=== PATIENT | female | born 1985 | race Caucasian/White ===

== ENCOUNTER 2019-03-04 09:23 | Inpatient (IN) | payer BC ==
[~2019-03-04] VITALS: Ht 154.9 cm; Wt 69.0 kg
--- OUTSIDE RECORDS SUMMARY | ~2019-03-04 | XMS | Encounter Summary ---
Demographics + + + | Address | [address] | | | [place] [address] | + + + | Home Phone | | + + + | Preferred Language | Unknown | + + + | Marital Status | | + + + | Catholic Affiliation | CHR | + + + | Race | White | + + + | Ethnic Group | Unknown | + + + Author + + + | Author | [facility] | + + + | Organization | [facility] | + + + | Address | Unknown | + + + | Phone | Unavailable | + + + Care Team Providers + +------+ + | Care Sales Audit Clerk Name | Role | Phone | + +------+ + PCP | Unavailable | + +------+ + Encounter Details +--------+ + + + + | Date | Type | Department | Care Team | Description | +--------+ + + + + | 07/02/ | Results | [facility] | Breanna Costa, | | | 2009 | Only | Medicine [address] | [place] [address] | | | | | [address] [place], | [place], [place] | | | | | [place] [address] | [address] | | | | | [phone] | [phone] | | | | | | | | +--------+ + + + + Social History + +-------+ +--------+------+ | Tobacco Use | Types | Packs/Day | Years | Date | | | | | Used | | + +-------+ +--------+------+ | Never Assessed | | | | | + +-------+ +--------+------+ + + + | Sex Assigned at | Date Recorded | | | | + + + | Not on file | | + + + + + + + | Job Start Date | Occupation | Industry | + + + + | Not on file | Not on file | Not on file | + + + + + + + + | Travel History | Travel Start | Travel End | + + + + + + | No recent travel history available. | + + documented as of this encounter Plan of Treatment Not on filedocumented as of this encounter Procedures + +--------+ + + + | Procedure Name | Priori | Date/Time | Associated Diagnosis | Comments | | | ty | | | | + +--------+ + + + | TSH | Routin | 07/02/2009 | | Results for this | | | e | 11:20 AM | | procedure are in the | | | | PDT | | results section. | + +--------+ + + + documented in this encounter Results TSH (07/02/2009 11:20 AM PDT) + +-------+ + + + | Component | Value | Ref Range | Performed | Pathologist | | | | | At | Signature | + +-------+ + + + | TSH | 0.64 | 0.34 - 5.6 | [facility] | | | | | UIU/ML | A MEDICAL | | | | | | CENTER | | + +-------+ + + + + + | Specimen | + + | | + + + + + + + | Performing | Address | City/State/Zipcode | Phone Number | | Organization | | | | + + + + + | [facility] | | | | | LABORATORY | | | | + + + + + | [facility] | And | [place] [address] | | | MEDICAL CENTER | Streets | | | + + + + + documented in this encounter Visit Diagnoses Not on filedocumented in this encounter"
--- OUTSIDE RECORDS SUMMARY | ~2019-03-04 | XMS | Encounter Summary ---
Demographics + + + | Address | [address] | | | [place] [address] | + + + | Home Phone | | + + + | Preferred Language | Unknown | + + + | Marital Status | | + + + | Caodaism Affiliation | CHR | + + + | Race | White | + + + | Ethnic Group | Unknown | + + + Author + + + | Author | [facility] | + + + | Organization | [facility] | + + + | Address | Unknown | + + + | Phone | Unavailable | + + + Care Team Providers + +------+ + | Care Driver Manager Name | Role | Phone | + +------+ + PCP | Unavailable | + +------+ + Encounter Details +--------+ + + + + | Date | Type | Department | Care Team | Description | +--------+ + + + + | 12/18/ | Results | [facility] | Yevgeniy Pierre | | | 2009 | Only | Department | MD Donovan | | +--------+ + + + + [...] | + +--------+ + + + | CBC (HEMOGRAM) ONLY | Routin | 12/18/2008 | | Results for this | | | e | 8:26 AM | | procedure are in the | | | | PDT | | results section. | + +--------+ + + + | ANTIBODY SCREEN | Routin | 12/18/2008 | | Results for this | | | e | 8:26 AM | | procedure are in the | | | | PDT | | results section. | + +--------+ + + + | GLUCOSE TOLERANCE | Routin | 12/18/2008 | | Results for this | | TEST, 1 HOUR | e | 8:26 AM | | procedure are in the | | | | PDT | | results section. | + +--------+ + + + documented in this encounter Results GLUCOSE TOLERANCE TEST, 1 HOUR (12/18/2008 8:26 AM PDT) + +-------+ + + + | Component | Value | Ref Range | Performed | Pathologist | | | | | At | Signature | + +-------+ + + + | 1 HOUR | 117 | <140 MG/DL | [facility] | | | GLUCOSE - | | | A MEDICAL | | | 2GT | | | CENTER | | + [...] | + + + + + | [facility] [address] | [place] [address] | | | MEDICAL CENTER | Streets | | | + + + + + CBC (HEMOGRAM) ONLY (12/18/2008 8:26 AM PDT) + + + + + + | Component | Value | Ref Range | Performed | Pathologist | | | | | At | Signature | + + + + + + | WHITE BLOOD | 10.5 | 4.3 - 11.0 X10 | [facility] | | | CELL COUNT | | 3/ul | A MEDICAL | | | | | | CENTER | | + + + + + + | HEMOGLOBIN | 12.2 | 12.0 - 16.0 | [facility] | | | | | g/dL | A MEDICAL | | | | | | CENTER | | + + + + + + | RED BLOOD | 3.96 (L) | 4.2 - 5.4 X10 | [facility] | | | CELL COUNT | | 6/uL | A MEDICAL | | | | | | CENTER | | + + + + + + | HEMATOCRIT | 34.8 (L) | 38.0 - 47.0 % | [facility] | | | | | | A MEDICAL | | | | | | CENTER | | + + + + + + | MCV | 88.1 | 82 - 100 fl | [facility] | | | | | | A MEDICAL | | | | | | CENTER | | + + + + + + | MCH | 30.8 | 28.0 - 32.0 pg | [facility] | | | | | | A MEDICAL | | | | | | CENTER | | + + + + + + | MCHC | 34.9 | 32 - 36 g/dL | [facility] | | | | | | A MEDICAL | | | | | | CENTER | | + + + + + + | RDW | 12.4 | 12 - 15 fL | [facility] | | | | | | A MEDICAL | | | | | | CENTER | | + + + + + + | PLATELET | 265 | 150 - 450 X10 3 | [facility] | | | COUNT | | | A MEDICAL | | | | | | CENTER | | + + + + + + | MPV | 8.8 (L) | 9.0 - 12.0 fL | [facility] | | | | | | A MEDICAL | | | | | | CENTER | | + + + + + + + + | Specimen | + + | | + + + + + + + | Performing | Address | City/State/Zipcode | Phone Number | | Organization | | | | + + + + + | [facility] | | | | | LABORATORY | | | | + + + + + | [facility] | [address] | [place] [address] | | | MEDICAL CENTER | Streets | | | + + + + + ANTIBODY SCREEN (12/18/2008 8:26 AM PDT) + + + + + + | Component | Value | Ref Range | Performed | Pathologist | | | | | At | Signature | + + + + + + | ANTIBODY | NEGATIVE | NEGATIVE | [facility] | | | SCREEN | | | A MEDICAL | | | | | | CENTER | | + + + + + + + + | Specimen | + + | | + + + + + + + | Performing | Address | City/State/Zipcode | Phone Number | | Organization | | | | + + + + + | [facility] | | | | | LABORATORY | | | | + + + + + | [facility] | [address] | [place] [address] | | | MEDICAL CENTER | Streets | | | + + + + + documented in this encounter Visit Diagnoses Not on filedocumented in this encounter"
--- OUTSIDE RECORDS SUMMARY | ~2019-03-04 | XMS | Encounter Summary ---
Demographics + + + | Address | [address] | | | [place] [address] | + + + | Home Phone | | + + + | Preferred Language | Unknown | + + + | Marital Status | | + + + | Sikhism Affiliation | CHR | + + + | Race | White | + + + | Ethnic Group | Unknown | + + + Author + + + | Author | [facility] | + + + | Organization | [facility] | + + + | Address | Unknown | + + + | Phone | Unavailable | + + + Care Team Providers + +------+ + | Care Scrum Project Manager Name | Role | Phone | + +------+ + PCP | Unavailable | + +------+ + Encounter Details +--------+ + + + + | Date | Type | Department | Care Team | Description | +--------+ + + + + | 03/20/ | Results | [facility] [address] | Other, Faculty | | | 2009 | Only | [address] | [phone] | | | | | [place] | | | | | | [address] | | | +--------+ + + + [...] + + + + | WBC, | [facility] [employer] | X10 3/uL | [facility] | | [...] + + + | BANDS % | [employer] | 0 - 7 % | [facility] [...] + + + + | EOSINOPHIL% | [facility] [employer] | 0 - 5 % | [facility] | | | , MANUAL | | | A MEDICAL | | | | | | CENTER | | + + + + + + | BASOPHIL%, | [facility] | 0 - 1 % | [facility] | | | MANUAL | | | A MEDICAL | | | | | | CENTER | | + + + + + + | REACTIVE | [facility] | 0.0 - 4.0 % | [facility] [...] + + + + | METAMYELOCY | [facility] [employer] | 0 - 0 % | [facility] | | | TISH % | | | A MEDICAL | | | | | | CENTER | | + + + + + + | MYELOCYTES | [employer] | 0 - 0 % | [facility] | | | % | | | A MEDICAL | | | | | | CENTER | | + + + + + + | PROMYELOCYT | [employer] | 0 - 0 % | [facility] | | | ES % | | | A MEDICAL | | | | | | CENTER | | + + + + + + | BLASTS | [employer] | 0 - 0 % | [facility] [...] + + + + | NUCLEATED | [employer] | | [facility] | | | RBCS | | | A MEDICAL | | | | | | CENTER | | + + + + + + | GIANT PLT | [facility] | | [facility] | | | | [...] | + + + + + | [facility] | [address] | [place] [address] | | | MEDICAL CENTER | Streets [...] (H) | 4.3 - 11.0 X10 | [facility] | | | CELL COUNT | | 3/ul | A MEDICAL | | | | | | CENTER | | + + + + + + | WBC, | [employer] | X10 3/uL | [facility] | | [...] + + + | BANDS % | [employer] | 0 - 7 % | [facility] [...] + + + + | EOSINOPHIL% | [facility] | 0 - 5 % | [facility] | | | , MANUAL | | | A MEDICAL | | | | | | CENTER | | + + + + + + | BASOPHIL%, | [facility] | 0 - 1 % | [facility] | | | MANUAL | | | A MEDICAL | | | | | | CENTER | | + + + + + + | REACTIVE | [employer] | 0.0 - 4.0 % | [facility] [...] + + + + | METAMYELOCY | [facility] | 0 - 0 % | [facility] | | | TISH % | | | A MEDICAL | | | | | | CENTER | | + + + + + + | MYELOCYTES | [facility] | 0 - 0 % | [facility] | | | % | | | A MEDICAL | | | | | | CENTER | | + + + + + + | PROMYELOCYT | [facility] [employer] | 0 - 0 % | [facility] | | | ES % | | | A MEDICAL | | | | | | CENTER | | + + + + + + | BLASTS | [employer] | 0 - 0 % | [facility] [...] + + + + | NUCLEATED | [employer] | | [facility] | | | RBCS | | | A MEDICAL | | | | | | CENTER | | + + + + + + | GIANT PLT | [employer] | | [facility] | | | | [...] | + + + + + | [facility] | And | [place] [address] | | | MEDICAL CENTER | Streets | | | + + + + + documented in this encounter Visit Diagnoses Not on filedocumented in this encounter"
--- OUTSIDE RECORDS SUMMARY | ~2019-03-04 | XMS | Encounter Summary ---
Demographics + + + | Address | [address] | | | [place] [address] | + + + | Home Phone | | + + + | Preferred Language | Unknown | + + + | Marital Status | | + + + | Christian Affiliation | CHR | + + + | Race | White | + + + | Ethnic Group | Unknown | + + + Author + + + | Author | [facility] | + + + | Organization | [facility] | + + + | Address | Unknown | + + + | Phone | Unavailable | + + + Care Team Providers + +------+ + | Care Corporate Director Talent Assessment Name | Role | Phone | + +------+ + PCP | Unavailable | + +------+ + Encounter Details +--------+ + + + + | Date | Type | Department | Care Team | Description | +--------+ + + + + | 03/09/ | Results | [facility] [address] | Other, Faculty | | | 2009 | Only | [address] | [phone] | | | | | [place] | | | | | | [address] | | | +--------+ + + + [...] | + +--------+ + + + | ZULEIKA W/DIFF, REFLEX | Routin | 03/09/2009 | | Results for this | | | e | 10:49 PM | | procedure are in the | | | | PST | | results section. | + +--------+ + + + | UREA NITROGEN, | Routin | 03/09/2009 | | Results for this | | PLASMA | e | 10:49 PM | | procedure are in the | | | | PST | | results section. | + +--------+ + + + documented in this encounter Results ZULEIKA W/DIFF, REFLEX (03/09/2009 10:49 PM PST) + + + + + + | Component | Value | Ref Range | Performed | Pathologist | | | | | At | Signature | + + + + + + | WHITE BLOOD | 14.2 (H) | 4.3 - 11.0 X10 | [facility] | | | CELL COUNT | | 3/ul | A MEDICAL | | | | | | CENTER | | + + + + + + | HEMOGLOBIN | 11.5 (L) | 12.0 - 16.0 | [facility] | | | | | g/dL | A MEDICAL | | | | | | CENTER | | + + + + + + | RED BLOOD | 3.83 (L) | 4.2 - 5.4 X10 | [facility] | | | CELL COUNT | | 6/uL | A MEDICAL | | | | | | CENTER | | + + + + + + | HEMATOCRIT | 32.2 (L) | 38.0 - 47.0 % | [facility] | | | | | | A MEDICAL | | | | | | CENTER | | + + + + + + | MCV | 84.0 | 82 - 100 fl | [facility] | | | | | | A MEDICAL | | | | | | CENTER | | + + + + + + | MCH | 30.0 | 28.0 - 32.0 pg | [facility] | | | | | | A MEDICAL | | | | | | CENTER | | + + + + + + | MCHC | 35.7 | 32 - 36 g/dL | [facility] | | | | | | A MEDICAL | | | | | | CENTER | | + + + + + + | RDW | 11.9 (L) | 12 - 15 fL | [facility] | | | | | | A MEDICAL | | | | | | CENTER | | + + + + + + | PLATELET | 276 | 150 - 450 X10 3 | [facility] | | | COUNT | | | A MEDICAL | | | | | | CENTER | | + + + + + + | MPV | 9.4 | 9.0 - 12.0 fL | [facility] | | | | | | A MEDICAL | | | | | | CENTER | | + + + + + + | NEUTROPHIL | 86.6 (H) | 40 - 80 % | [facility] | | | % | | | A MEDICAL | | | | | | CENTER | | + + + + + + | LYMPHOCYTE | 9.4 (L) | 20 - 50 % | [facility] | | | % | | | A MEDICAL | | | | | | CENTER | | + + + + + + | EOS % | 1.0 | 0 - 5 % | [facility] | | | | | | A MEDICAL | | | | | | CENTER | | + + + + + + | BASO % | 1.0 | 0 - 1 % | [facility] | | | | | | A MEDICAL | | | | | | CENTER | | + + + + + + | MONOCYTE % | 2.0 | 2 - 10 % | [facility] | | | | | | A MEDICAL | | | | | | CENTER | | + + + + + + | BANDS % | MANAGER OF INVESTIGATIONS | 0 - 7 % | [facility] | | | | | | A MEDICAL | | | | | | CENTER | | + + + + + + | CBC | NPYYY | | [facility] | | | COMMENTS | | | A MEDICAL | | | | | | CENTER | | + + + + + + | HELMET | NO HELMET CELLS SEEN | | [facility] | | | CELLS | | | A MEDICAL | | [...] | + + + + + | [facility] | [address] | [place] [address] | | | MEDICAL CENTER | Streets | | | + + + + + UREA NITROGEN, PLASMA (03/09/2009 10:49 PM PST) + + + + + + | Component | Value | Ref Range | Performed | Pathologist | | | | | At | Signature | + + + + + + | BUN, PLASMA | 8 | 8 - 30 MG/DL | [facility] | | | (LAB) | | | A MEDICAL | | | | | | CENTER | | + + + + + + | CREATININE | 0.54 (L) | 0.6 - 1.1 MG/DL | [facility] | | | PLASMA | | | A MEDICAL | | | (LAB) | | | CENTER | | + + + + + + | URIC ACID, | 3.9 | 3.4 - 8.5 MG/DL | [facility] | | | PLASMA | | | A MEDICAL | | | (LAB) | | | CENTER | | + + + + + + | AST(SGOT) | 27 | 10 - 41 U/L | [facility] | | | | | [...] | + + + + + | [facility] | | [place] [address] | | | [facility] | [facility] | | | + + + + + documented in this encounter Visit Diagnoses Not on filedocumented in this encounter"
--- OUTSIDE RECORDS SUMMARY | ~2019-03-04 | XMS | Encounter Summary ---
Demographics + + + | Address | [address] | | | [place] [address] | + + + | Home Phone | | + + + | Preferred Language | Unknown | + + + | Marital Status | | + + + | Sikh Affiliation | CHR | + + + | Race | White | + + + | Ethnic Group | Unknown | + + + Author + + + | Author | [facility] | + + + | Organization | [facility] | + + + | Address | Unknown | + + + | Phone | Unavailable | + + + Care Team Providers + +------+ + | Care Reducing Salon Attendant Name | Role | Phone | + +------+ + PCP | Unavailable | + +------+ + Encounter Details +--------+ + + + + | Date | Type | Department | Care Team | Description | +--------+ + + + + | 05/03/ | Results | [facility] | Other, Faculty | | | 2009 | Only | [address] | [phone] | | | | | [place] | | | | | | [address] | | | +--------+ + + + [...] | + +--------+ + + + | GC/CHLAMYDIA PROBE, | Routin | 05/03/2009 | | Results for this | | DNA | e | 12:00 AM | | procedure are in the | | | | PDT | | results section. | + +--------+ + + + documented in this encounter Results GC/CHLAMYDIA PROBE, DNA (05/03/2009 12:00 AM PDT) + + + + + + | Component | Value | Ref Range | Performed | Pathologist | | | | | At | Signature | + + + + + + | CHLAMYDIA | NOT DETECTEDComment: | | [facility] | | | PROBE | | | [facility] | | | | | | -[place] | | | | REFERENCE: | | | | | | | | | | | | | | | | | | NOT DETECTED | | | | + + + + + + | GONOCOCCUS | NOT DETECTEDComment: | | [facility] | | | PROBE | | | DIAGNOST[facility] | | | | | | -[place] | | | | REFERENCE: | | | | | | | | | | | | | | | | | | NOT DETECTED | | | | + + + + + + + + | Specimen | + + | | + + + + + + + | Performing | Address | City/State/Zipcode | Phone Number | | Organization | | | | + + + + + | [facility] | [address] | [place] [address] | [phone] | | [facility] | | | | + + + + + | [facility] | | | | | [facility] | | | | + + + + + documented in this encounter Visit Diagnoses Not on filedocumented in this encounter"
--- OUTSIDE RECORDS SUMMARY | ~2019-03-04 | XMS | Encounter Summary ---
Demographics + + + | Address | [address] | | | [place] [address] | + + + | Home Phone | | + + + | Preferred Language | Unknown | + + + | Marital Status | | + + + | Cheondoism Affiliation | CHR | + + + | Race | White | + + + | Ethnic Group | Unknown | + + + Author + + + | Author | [facility] | + + + | Organization | [facility] | + + + | Address | Unknown | + + + | Phone | Unavailable | + + + Care Team Providers + +------+ + | Care Duplicate Maker Name | Role | Phone | + +------+ + PCP | Unavailable | + +------+ + Encounter Details +--------+ + + + + | Date | Type | Department | Care Team | Description | +--------+ + + + + | 03/16/ | Results | [facility] | Yevgeniy [...] | + +--------+ + + + | AMNISURE | Routin | 03/16/2009 | | Results for this | | | e | 5:20 PM | | procedure are in the | | | | PST | | results section. | + +--------+ + + + documented in this encounter Results AMNISURE (03/16/2009 5:20 PM PST) + + + + + + | Component | Value | Ref Range | Performed | Pathologist | | | | | At | Signature | + + + + + + | AMNISURE | NO MEMBRANES RUPTURE | | [facility] | | | | [...] + + + | [facility] | [address] | [place] [address] | | | [facility] | [place] | | | + + + + + documented in this encounter Visit Diagnoses Not on filedocumented in this encounter"
--- OUTSIDE RECORDS SUMMARY | ~2019-03-04 | XMS | Encounter Summary ---
Demographics + + + | Address | [address] | | | [place] [address] | + + + | Home Phone | | + + + | Preferred Language | Unknown | + + + | Marital Status | | + + + | Restorationism Affiliation | CHR | + + + | Race | White | + + + | Ethnic Group | Unknown | + + + Author + + + | Author | [facility] | + + + | Organization | [facility] | + + + | Address | Unknown | + + + | Phone | Unavailable | + + + Care Team Providers + +------+ + | Care Learning Engineer Name | Role | Phone | + +------+ + PCP | Unavailable | + +------+ + Encounter Details +--------+ + + + + | Date | Type | Department | Care Team | Description | +--------+ + + + + | 05/03/ | Results | [facility] | Other, Faculty | | | 2009 | Only | [address] | [phone] | | | | | [place] | | | | | | [address] | | | +--------+ + + + [...] DIAGNOSTICS | | | | | | -[place] | | | | REFERENCE: | | | | | | | | | | | | | | | | | | NOT DETECTED | | | | + + + + + + | GONOCOCCUS | NOT DETECTEDComment: | | [facility] | | | PROBE | | | DIAGNOST[facility] | | | | | | -[place] | | | | REFERENCE: | | [...] + + + | [facility] | [address] | [place] [address] | [phone] | | [facility] | | | | + + + + + | [facility] | | | | | [facility] | | | | + + + + + documented in this encounter Visit Diagnoses Not on filedocumented in this encounter"
--- OUTSIDE RECORDS SUMMARY | ~2019-03-04 | XMS | Encounter Summary ---
Demographics + + + | Address | [address] | | | [place] [address] | + + + | Home Phone | | + + + | Preferred Language | Unknown | + + + | Marital Status | | + + + | Gnosticist Affiliation | CHR | + + + | Race | White | + + + | Ethnic Group | Unknown | + + + Author + + + | Author | [facility] | + + + | Organization | [facility] | + + + | Address | Unknown | + + + | Phone | Unavailable | + + + Care Team Providers + +------+ + | Care Targeting Acquisition Officer Name | Role | Phone | + +------+ + PCP | Unavailable | + +------+ + Encounter Details +--------+ + + + + | Date | Type | Department | Care Team | Description | +--------+ + + + + | 12/06/ | Results | [facility] | Isaiah Fuller, | | | 2005 | Only | Department | MD [address] | | | | | | [place] | | | | | | [address] | | | | | | [phone] | | | | | | | [...] | + +--------+ + + + | ABDOMEN 2 VIEW PA | Routin | 12/06/2005 | | Results for this | | CHEST [id number] | e | 12:17 AM | | procedure are in the | | | | PDT | | results section. | + +--------+ + + + documented in this encounter Results ABDOMEN 2 VIEW PA CHEST [id number] (12/06/2005 12:17 AM PDT) + + | Specimen | + + | | + + + + + | Narrative | Performed At | + + + | ABDOMINAL SERIES INDICATION: Abdominal pain. FINDINGS: Two | [facility] | | views of the abdomen were obtained. No small bowel distention or | DEPARTMENT OF | | perforation is noted. There is a large amount of fecal material | RADIOLOGY | | present throughout the colon. No renal calcification is seen. The | | | single view of the chest demonstrates the heart to be normal in size | | | and the lungs clear. CONCLUSIONS: Large amount of fecal material is | | | noted. No obstruction or perforation. | | + + + + + | Procedure Note | + + | Interface, Radiology Results - 10/09/2014 2:39 PM PDT ABDOMINAL SERIES | | INDICATION: Abdominal pain. | | FINDINGS: | | Two views of the abdomen were obtained. No small bowel distention or | | perforation is noted. There is a large amount of fecal material | | present throughout the colon. No renal calcification is seen. | | The single view of the chest demonstrates the heart to be normal in | | size and the lungs clear. | | CONCLUSIONS: Large amount of fecal material is noted. No obstruction | | or perforation. | + + + +---------+ + + [...]
--- OUTSIDE RECORDS SUMMARY | ~2019-03-04 | XMS | Encounter Summary ---
Demographics + + + | Address | [address] | | | [place] [address] | + + + | Home Phone | | + + + | Preferred Language | Unknown | + + + | Marital Status | | + + + | Lutheran Affiliation | CHR | + + + | Race | White | + + + | Ethnic Group | Unknown | + + + Author + + + | Author | [facility] | + + + | Organization | [facility] | + + + | Address | Unknown | + + + | Phone | Unavailable | + + + Care Team Providers + +------+ + | Care Torch Operator Name | Role | Phone | + [...] | + + + + + | [facility] | [address] | [place] [address] | | | MEDICAL CENTER | Streets [...] 10.5 | 4.3 - 11.0 X10 | [facility] | | | CELL COUNT | | [...] + + | [facility] | [address] | [place] [address] | | | MEDICAL CENTER | Streets [...] + + + | [facility] | [address] | [place] [address] | | | MEDICAL CENTER | Streets | | | + + + + + documented in this encounter Visit Diagnoses Not on filedocumented in this encounter"
--- OUTSIDE RECORDS SUMMARY | ~2019-03-04 | XMS | Encounter Summary ---
Demographics + + + | Address | [address] | | | [place] [address] | + + + | Home Phone | | + + + | Preferred Language | Unknown | + + + | Marital Status | | + + + | Moravian Affiliation | CHR | + + + | Race | White | + + + | Ethnic Group | Unknown | + + + Author + + + | Author | [facility] | + + + | Organization | [facility] | + + + | Address | Unknown | + + + | Phone | Unavailable | + + + Care Team Providers + +------+ + | Care Marble Helper Name | Role | Phone | + [...] [place] | | | | | | [address] | | | +--------+ + + + [...] Latrell Sweeney MD - 03/20/2009 5:52 PM [facility] | | REPORT OF [id number] [place] [address] | | HIRO SAUCEDO CDATE OF OPERATION: [...] scalpel,carried laterally with bandage | | scissors. Soft Hat Binder's hand was placed into theuterine cavity, direct [...] | | 03/20/2009 17:46:39Job #: | | [id number] | | | | | | Electronically | | Signed | | | | | | | | | | | | | | CYNTHIA Ly NATALIE [id number] : | | [id number] DATE: 03/20/09 | | | | | |JCF/MedQ | | | | | | /[id number] | | | | | | Electronically Signed | | | | | | | | Latrell Sweeney MD | | | | | | | |HIRO SAUCEDO | |[id number] : 87 | |[id number] | |ADMIT DATE: 03/20/09 | + + documented in this encounter Visit Diagnoses Not on filedocumented in this encounter"
--- OUTSIDE RECORDS SUMMARY | ~2019-03-04 | XMS | Encounter Summary ---
Demographics + + + | Address | [address] | | | [place] [address] | + + + | Home Phone [...] Team Providers + +------+ + | Care Hall Clerk Name | Role | Phone | + +------+ + PCP | Unavailable | + +------+ + Encounter Details +--------+ + + + + | Date | Type | Department | Care Team | Description | +--------+ + + + + | 03/09/ | Results | [facility] | Other, Faculty | | | 2009 | Only | [address] | [phone] | | | | | [place] | | | | | | [address] | | | +--------+ + + + [...] + + + | BANDS % | HEALTH TECHNICIAN HEARING | 0 - 7 % | [facility] [...] | + + + + + | [facility] | [address] | [place] [address] | | | MEDICAL CENTER | Streets [...] 8 | 8 - 30 MG/DL | [facility] | | | (LAB) | | | A MEDICAL | | | | | | CENTER | | + + + + + + | CREATININE | 0.54 (L) | 0.6 - 1.1 MG/DL | [facility] | | | PLASMA | | | [...] | + + + + + | [facility] | | [place] [address] | | | [facility] | [facility] | | | + + + + + documented in this encounter Visit Diagnoses Not on filedocumented in this encounter"
--- OUTSIDE RECORDS SUMMARY | ~2019-03-04 | XMS | Encounter Summary ---
Demographics + + + | Address | [address] | | | [place] [address] | + + + | Home Phone | | + + + | Preferred Language | Unknown | + + + | Marital Status | | + + + | Jainism Affiliation | CHR | + + + | Race | White | + + + | Ethnic Group | Unknown | + + + Author + + + | Author | [facility] | + + + | Organization | [facility] | + + + | Address | Unknown | + + + | Phone | Unavailable | + + + Care Team Providers + +------+ + | Care Spice Fumigator Name | Role | Phone | + [...] | + + + + + | [facility] | [address] | [place] [address] | | | MEDICAL CENTER | Streets [...] | 4.3 - 11.0 X10 | [facility] | | | CELL COUNT | | [...] + + | [facility] | [address] | [place] [address] | | | MEDICAL CENTER | Streets [...] + + + | [facility] | [address] | [place] [address] | | | MEDICAL CENTER | Streets | | | + + + + + documented in this encounter Visit Diagnoses Not on filedocumented in this encounter"
--- OUTSIDE RECORDS SUMMARY | ~2019-03-04 | XMS | Encounter Summary ---
Demographics + + + | Address | [address] | | | [place] [address] | + + + | Home Phone | | + + + | Preferred Language | Unknown | + + + | Marital Status | | + + + | Advent Affiliation | CHR | + + + | Race | White | + + + | Ethnic Group | Unknown | + + + Author + + + | Author | [facility] | + + + | Organization | [facility] | + + + | Address | Unknown | + + + | Phone | Unavailable | + + + Care Team Providers + +------+ + | Care Trouble Tracer Name | Role | Phone | + +------+ + PCP | Unavailable | + +------+ + Encounter Details +--------+ + + + + | Date | Type | Department | Care Team | Description | +--------+ + + + + | 08/19/ | Results | EP[facility] | Other, Faculty | | | 2008 | Only | [address] | [phone] | | | | | [place] | | | | | | [address] | | | +--------+ + + + [...] + | GC/CHLAMYDIA PROBE, | Routin | 08/19/2008 | | Results for this | | DNA | e | 12:00 AM | | procedure are in the | | | | PDT | | results section. | + +--------+ + + + documented in this encounter Results GC/CHLAMYDIA PROBE, DNA (08/19/2008 12:00 AM PDT) + + + + + + | Component | Value | Ref Range | Performed | Pathologist | | | | | At | Signature | + + + + + + | CHLAMYDIA | NOT DETECTEDComment: | | [facility] | | | PROBE | | | [facility] | | | | | | -[place] | | | | REFERENCE: | | | | | | | | | | | | | | | | | | NOT DETECTED | | | | + + + + + + | GONOCOCCUS | NOT DETECTEDComment: | | [facility] | | | PROBE | | | [facility]NOST[facility] | | | | | | -[place] | | | | REFERENCE: | | [...] + + + | [facility] | [address] | [place] [address] | [phone] | | [facility] | | | | + + + + + | [facility] | | | | | [facility] | | | | + + + + + documented in this encounter Visit Diagnoses Not on filedocumented in this encounter"
--- OUTSIDE RECORDS SUMMARY | ~2019-03-04 | XMS | Encounter Summary ---
Demographics + + + | Address | [address] | | | [place] [address] | + + + | Home Phone | | + + + | Preferred Language | Unknown | + + + | Marital Status | | + + + | Pentecostalism Affiliation | CHR | + + + | Race | White | + + + | Ethnic Group | Unknown | + + + Author + + + | Author | [facility] | + + + | Organization | [facility] | + + + | Address | Unknown | + + + | Phone | Unavailable | + + + Care Team Providers + +------+ + | Care Ore Feeder Name | Role | Phone | + [...] +-------+ + + + | COUMADIN | [facility] | | [facility] | | | CURRENT | | | A MEDICAL | | | DOSE | | | CENTER | | + +-------+ + + + | LAST DOSE | [facility] | | [facility] | | | DATE | | | A MEDICAL | | | | | | CENTER | | + +-------+ + + + | LAST DOSE | [facility] | | [facility] | | | TIME [...] + + + | [facility] | [address] | [place] [address] | | | MEDICAL CENTER | Streets | | | + + + + + documented in this encounter Visit Diagnoses Not on filedocumented in this encounter"
--- OUTSIDE RECORDS SUMMARY | ~2019-03-04 | XMS | Encounter Summary ---
Demographics + + + | Address | [address] | | | [place] [address] | + + + | Home Phone | | + + + | Preferred Language | Unknown | + + + | Marital Status | | + + + | Rastafarian Affiliation | CHR | + + + | Race | White | + + + | Ethnic Group | Unknown | + + + Author + + + | Author | [facility] | + + + | Organization | [facility] | + + + | Address | Unknown | + + + | Phone | Unavailable | + + + Care Team Providers + +------+ + | Care Solar Sales Ambassador Name | Role | Phone | + [...] | | | | | [address], | [place], [place] | | | | | [place] [address] | [address] | | | | | [phone] | [phone] | | | | | | | [...] | + + + + + | [facility] | And | [place] [address] | | | MEDICAL CENTER | Streets | | | + + + + + documented in this encounter Visit Diagnoses Not on filedocumented in this encounter"
--- OUTSIDE RECORDS SUMMARY | ~2019-03-04 | XMS | Encounter Summary ---
Demographics + + + | Address | [address] | | | [place] [address] | + + + | Home Phone | | + + + | Preferred Language | Unknown | + + + | Marital Status | | + + + | Yarsanism Affiliation | CHR | + + + | Race | White | + + + | Ethnic Group | Unknown | + + + Author + + + | Author | [facility] | + + + | Organization | [facility] | + + + | Address | Unknown | + + + | Phone | Unavailable | + + + Care Team Providers + +------+ + | Care Farm Demonstrator Name | Role | Phone | + +------+ + PCP | Unavailable | + +------+ + Encounter Details +--------+ + + + + | Date | Type | Department | Care Team | Description | +--------+ + + + + | 06/17/ | Results | [facility] | Danette Finch, | | | 2009 | Only | Medical Clinic | USER ACCEPTANCE TESTER [address] | | | | | Internal Medicine | Blvd [place], [place] | | | | | [address] | [address] | | | | | [place], [place] | [phone] | | | | | [address] | | | | | | [phone] | | | +--------+ + + + [...] | + +--------+ + + + | [facility] ONLY | Routin | 06/17/2009 | | Results for this | | | e | 4:47 PM | | procedure are in the | | | | PDT | | results section. | + +--------+ + + + | VAGINAL/URETHRAL WET | Routin | 06/17/2009 | | Results for this | | PREP | e | 12:00 AM | | procedure are in the | | | | PDT | | results section. | + +--------+ + + + documented in this encounter Results [facility] ONLY (06/17/2009 4:47 PM PDT) + +--------+ + + + | Component | Value | Ref Range | Performed | Pathologist | | | | | At | Signature | + +--------+ + + + | COLOR(UR) | YELLOW | | [facility] | | | | | | A MEDICAL | | | | | | CENTER | | + +--------+ + + + | APPEARANCE | CLOUDY | CLEAR | [facility] | | | | | | A MEDICAL | | | | | | CENTER | | + +--------+ + + + | SPECIFIC | 1.025 | 1.005 - 1.030 | [facility] | | | GRAVITY | | | A MEDICAL | | | | | | CENTER | | + +--------+ + + + | PH(UR) | 5.5 | 5.0 - 8.0 | [facility] | | | | | | A MEDICAL | | | | | | CENTER | | + +--------+ + + + | PROTEIN, UA | TRACE | NEGATIVE | [facility] | | | | | | A MEDICAL | | | | | | CENTER | | + +--------+ + + + | GLUCOSE, UA | NEG | NEGATIVE | [facility] | | | | | | A MEDICAL | | | | | | CENTER | | + +--------+ + + + | KETONES, UA | NEG | NEGATIVE | [facility] | | | | | | A MEDICAL | | | | | | CENTER | | + +--------+ + + + | BILIRUBIN | NEG | NEGATIVE | [facility] | | | | | | A MEDICAL | | | | | | CENTER | | + +--------+ + + + | BLOOD | NEG | NEGATIVE | [facility] | | | | | | A MEDICAL | | | | | | CENTER | | + +--------+ + + + | NITRITES | NEG | NEGATIVE | [facility] | | | | | | A MEDICAL | | | | | | CENTER | | + +--------+ + + + | LEUKOCYTE | POS | NEGATIVE | [facility] | | | ESTERASE | | | A MEDICAL | | | | | | CENTER | | + +--------+ + + + | UROBILINOGE | NORMAL | NORMAL LEE | [facility] | | | N | | | A MEDICAL | | | | | | CENTER | | + +--------+ + + + | WHITE CELLS | 5-10 | 0 - 2 HPF | [facility] | | | | | | A MEDICAL | | | | | | CENTER | | + +--------+ + + + | RED CELLS | NEG | 0 - 3 HPF | [facility] | | | | | | A MEDICAL | | | | | | CENTER | | + +--------+ + + + | EPITHELIAL | MOD | RARE-MOD LPF | [facility] | | | CELLS | | | A MEDICAL | | | | | | CENTER | | + +--------+ + + + | BACTERIA | TRACE | NEG HPF | [facility] | | | | | | A MEDICAL | | | | | | CENTER | | + +--------+ + + + | OTHER | ... | | [facility] | | | | | | A MEDICAL | | | | | | CENTER | | + +--------+ + + + | SOURCE | RANDOM | | [facility] | | | | | | A MEDICAL | | | | | | CENTER | | + +--------+ + + + + + | Specimen | + + | | + + + + + + + | Performing | Address | City/State/Zipcode | Phone Number | | Organization | | | | + + + + + | [facility] | | | | | LABORATORY | | | | + + + + + | [facility] [facility] | And | [place] [address] | | | [facility] | Streets | | | + + + + + VAGINAL/URETHRAL WET PREP (06/17/2009 12:00 AM PDT) + + + + + + | Component | Value | Ref Range | Performed | Pathologist | | | | | At | Signature | + + + + + + | [facility] | NO FUNGAL STRUCTURES | NONE SEEN | [facility] | | | ONLY | | | A MEDICAL | | [...] + + + | [facility] | [address] | [place] [address] | | | MEDICAL CENTER | Streets | | | + + + + + documented in this encounter Visit Diagnoses Not on filedocumented in this encounter"
--- OUTSIDE RECORDS SUMMARY | ~2019-03-04 | XMS | Clinical Summary ---
Demographics + + + | Address | [address] | | | [place] [address] | + + + | Home Phone | | + + + | Preferred Language | Unknown | + + + | Marital Status | | + + + | Hoahaoism Affiliation | CHR | + + + | Race | White | + + + | Ethnic Group | Unknown | + + + Author + + + | Organization | Unknown | + + + | Address | Unknown | + + + | Phone | Unavailable | + + + Care Team Providers + +------+ + | Care Auto Claim Representative Name | Role | Phone | + +------+ + PCP | Unavailable | + +------+ + Source Comments ERIKA is fully live on both [facility] and [facility] InPatient.[facility]ly [facility] Allergies Not on File Medications [...]
--- OUTSIDE RECORDS SUMMARY | ~2019-03-04 | XMS | Encounter Summary ---
Demographics + + + | Address | [address] | | | [place] [address] | + + + | Home Phone | | + + + | Preferred Language | Unknown | + + + | Marital Status | | + + + | Jew Affiliation | CHR | + + + | Race | White | + + + | Ethnic Group | Unknown | + + + Author + + + | Author | [facility] | + + + | Organization | [facility] | + + + | Address | Unknown | + + + | Phone | Unavailable | + + + Care Team Providers + +------+ + | Care Security Installation Technician Name | Role | Phone | + [...] | | | | | [address], | [place], [place] | | | | | [place] [address] | [address] | | | | | [phone] | [phone] | | | | | | | [...] | + + + + + | [facility] | And | [place] [address] | | | MEDICAL CENTER | Streets | | | + + + + + documented in this encounter Visit Diagnoses Not on filedocumented in this encounter"
--- OUTSIDE RECORDS SUMMARY | ~2019-03-04 | XMS | Encounter Summary ---
Demographics + + + | Address | [address] | | | [place] [address] | + + + | Home Phone | | + + + | Preferred Language | Unknown | + + + | Marital Status | | + + + | Nondenominational Affiliation | CHR | + + + | Race | White | + + + | Ethnic Group | Unknown | + + + Author + + + | Author | [facility] | + + + | Organization | [facility] | + + + | Address | Unknown | + + + | Phone | Unavailable | + + + Care Team Providers + +------+ + | Care Lean Manager Name | Role | Phone | + +------+ + PCP | Unavailable | + +------+ + Encounter Details +--------+ + + + + | Date | Type | Department | Care Team | Description | +--------+ + + + + | 03/20/ | Results | [facility] | Other, Faculty | | | 2009 | Only | [address] | [phone] | | | | | [place] | | | | | | [address] | | | +--------+ + + + [...] + + + + | WBC, | SUGAR COATING HAND | X10 3/uL | [facility] | | [...] + + + | BANDS % | SUGAR COATING HAND | 0 - 7 % | [facility] [...] + + + + | EOSINOPHIL% | SUGAR COATING HAND | 0 - 5 % | [facility] | | | , MANUAL | | | A MEDICAL | | | | | | CENTER | | + + + + + + | BASOPHIL%, | SUGAR COATING HAND | 0 - 1 % | [facility] | | | MANUAL | | | A MEDICAL | | | | | | CENTER | | + + + + + + | REACTIVE | SUGAR COATING HAND | 0.0 - 4.0 % | [facility] [...] + + + + | METAMYELOCY | SUGAR COATING HAND | 0 - 0 % | [facility] | | | TISH % | | | A MEDICAL | | | | | | CENTER | | + + + + + + | MYELOCYTES | SUGAR COATING HAND | 0 - 0 % | [facility] | | | % | | | A MEDICAL | | | | | | CENTER | | + + + + + + | PROMYELOCYT | SUGAR COATING HAND | 0 - 0 % | [facility] | | | ES % | | | A MEDICAL | | | | | | CENTER | | + + + + + + | BLASTS | SUGAR COATING HAND | 0 - 0 % | [facility] [...] + + + + | NUCLEATED | SUGAR COATING HAND | | [facility] | | | RBCS | | | A MEDICAL | | | | | | CENTER | | + + + + + + | GIANT PLT | SUGAR COATING HAND | | [facility] | | | | [...] + + + + | [facility] | [address] | [place] [address] | | | MEDICAL CENTER | Streets [...] (H) | 4.3 - 11.0 X10 | [facility] | | | CELL COUNT | | 3/ul | A MEDICAL | | | | | | CENTER | | + + + + + + | WBC, | SUGAR COATING HAND | X10 3/uL | [facility] | | [...] + + + | BANDS % | SUGAR COATING HAND | 0 - 7 % | [facility] [...] + + + + | EOSINOPHIL% | SUGAR COATING HAND | 0 - 5 % | [facility] | | | , MANUAL | | | A MEDICAL | | | | | | CENTER | | + + + + + + | BASOPHIL%, | SUGAR COATING HAND | 0 - 1 % | [facility] | | | MANUAL | | | A MEDICAL | | | | | | CENTER | | + + + + + + | REACTIVE | SUGAR COATING HAND | 0.0 - 4.0 % | [facility] [...] + + + + | METAMYELOCY | SUGAR COATING HAND | 0 - 0 % | [facility] | | | TISH % | | | A MEDICAL | | | | | | CENTER | | + + + + + + | MYELOCYTES | SUGAR COATING HAND | 0 - 0 % | [facility] | | | % | | | A MEDICAL | | | | | | CENTER | | + + + + + + | PROMYELOCYT | SUGAR COATING HAND | 0 - 0 % | [facility] | | | ES % | | | A MEDICAL | | | | | | CENTER | | + + + + + + | BLASTS | SUGAR COATING HAND | 0 - 0 % | [facility] [...] + + + + | NUCLEATED | SUGAR COATING HAND | | [facility] | | | RBCS | | | A MEDICAL | | | | | | CENTER | | + + + + + + | GIANT PLT | SUGAR COATING HAND | | [facility] | | | | [...] + + + + | [facility] | And | [place] [address] | | | MEDICAL CENTER | Streets | | | + + + + + documented in this encounter Visit Diagnoses Not on filedocumented in this encounter"
--- OUTSIDE RECORDS SUMMARY | ~2019-03-04 | XMS | Encounter Summary ---
Demographics + + + | Address | [address] | | | [place] [address] | + + + | Home Phone | | + + + | Preferred Language | Unknown | + + + | Marital Status | | + + + | Hinduism Affiliation | CHR | + + + | Race | White | + + + | Ethnic Group | Unknown | + + + Author + + + | Author | [facility] | + + + | Organization | [facility] | + + + | Address | Unknown | + + + | Phone | Unavailable | + + + Care Team Providers + +------+ + | Care Bilingual Medical Receptionist Name | Role | Phone | + +------+ + PCP | Unavailable | + +------+ + Encounter Details +--------+ + + + + | Date | Type | Department | Care Team | Description | +--------+ + + + + | 06/17/ | Results | [facility] | Danette Finch, | | | 2009 | Only | Medical Clinic | DELINQUENT TAX COLLECTOR [address] | | | | | Internal Medicine | Blvd [place], [place] | | | | | [address] | [address] | | | | | [place], [place] | [phone] | | | | | [address] | | | | | | [phone] | | | +--------+ + + + [...] | + + + + + | [facility] [place] | And | [place] [address] | | | [facility] | Streets | | | + + [...] + + + | [facility] | [address] | [place] [address] | | | MEDICAL CENTER | Streets | | | + + + + + documented in this encounter Visit Diagnoses Not on filedocumented in this encounter"
--- OUTSIDE RECORDS SUMMARY | ~2019-03-04 | XMS | Encounter Summary ---
Demographics + + + | Address | [address] | | | [place] [address] | + + + | Home Phone | | + + + | Preferred Language | Unknown | + + + | Marital Status | | + + + | Druze Affiliation | CHR | + + + | Race | White | + + + | Ethnic Group | Unknown | + + + Author + + + | Author | [facility] | + + + | Organization | [facility] | + + + | Address | Unknown | + + + | Phone | Unavailable | + + + Care Team Providers + +------+ + | Care Cryptographic Vulnerability Analyst Name | Role | Phone | + [...] [place] | | | | | | [address] | | | | | | [phone] | | | | | | | [...] | Results for this | | CHEST [id number] | e | 12:17 AM | | procedure are in the | | | | PDT | | results section. | + +--------+ + + + documented in this encounter Results ABDOMEN 2 VIEW PA CHEST [id number] (12/06/2005 12:17 AM PDT) + + | [...]
--- OUTSIDE RECORDS SUMMARY | ~2019-03-04 | XMS | Encounter Summary ---
Demographics + + + | Address | [address] | | | [place] [address] | + + + | Home Phone [...] + + + | Organization | [facility] | + + + | Address | Unknown | + + + | Phone | Unavailable | + + + Care Team Providers + +------+ + | Care Curing Oven Tender Name | Role | Phone | + [...] [place] | | | | | | [address] | | | +--------+ + + + [...] Sweeney MD - 03/20/2009 5:52 PM [facility] | | REPORT OF [id number] [place] [address] | | HIRO SAUCEDO CDATE OF OPERATION: [...] scalpel,carried laterally with bandage | | scissors. Aba Tutor's hand was placed into theuterine cavity, direct [...] | | 03/20/2009 17:46:39Job #: | | [id number] | | | | | | Electronically | | Signed | | | | | | | | | | | | | | CYNTHIA Ly NATALIE [id number] : | | [id number] DATE: 03/20/09 | | | | | |JCF/MedQ | | | | | | /[id number] | | | | | | Electronically Signed | | | | | | | | Latrell Sweeney MD | | | | | | | |HIRO SAUCEDO | |[id number] : 87 | |[id number] | |ADMIT DATE: 03/20/09 | + + documented in this encounter Visit Diagnoses Not on filedocumented in this encounter"
--- OUTSIDE RECORDS SUMMARY | ~2019-03-04 | XMS | Encounter Summary ---
Demographics + + + | Address | [address] | | | [place] [address] | + + + | Home Phone | | + + + | Preferred Language | Unknown | + + + | Marital Status | | + + + | Scientology Affiliation | CHR | + + + [...] Team Providers + +------+ + | Care Biomedical Photographer Name | Role | Phone | + +------+ + PCP | Unavailable | + +------+ + Encounter Details +--------+ + + + + | Date | Type | Department | Care Team | Description | +--------+ + + + + | 06/17/ | Results | [facility] | Danette Finch, | | | 2009 | Only | [facility] Clinic | COCOA MILL OPERATOR [address] | | | | | Internal Medicine | [address]vd [place], [place] | | | | | [address] | [address] | | | | | [place], [place] | [phone] | | | | | [address] | | | | | | [phone] | | | +--------+ + + + [...] | + + + + + | [place] | And | [place] [address] | | | [facility] | Streets | | | [...] + + + | [facility] | [address] [place] | [place] [address] | | | MEDICAL CENTER | Streets | | | + + + + + documented in this encounter Visit Diagnoses Not on filedocumented in this encounter"
--- OUTSIDE RECORDS SUMMARY | ~2019-03-04 | XMS | Encounter Summary ---
Demographics + + + | Address | [address] | | | [place] [address] | + + + | Home Phone | | + + + | Preferred Language | Unknown | + + + | Marital Status | | + + + | Mu-Ism Affiliation | CHR | + + + | Race | White | + + + | Ethnic Group | Unknown | + + + Author + + + | Author | [facility] | + + + | Organization | [facility] | + + + | Address | Unknown | + + + | Phone | Unavailable | + + + Care Team Providers + +------+ + | Care Stone Gang Sawyer Name | Role | Phone | + +------+ + PCP | Unavailable | + +------+ + Encounter Details +--------+ + + + + | Date | Type | Department | Care Team | Description | +--------+ + + + + | 03/09/ | Results | [facility] | Other, Faculty | | | 2009 | Only | [address] | [phone] | | | | | [place] | | | | | | [address] | | | +--------+ + + + [...] + + + | BANDS % | PRINCIPAL TECHNICAL SPECIALIST | 0 - 7 % | [...] | [facility] | [place] | [place] [address] | | | MEDICAL CENTER | Streets [...] 8 | 8 - 30 MG/DL | [facility] | | | (LAB) | | | A MEDICAL | | | | | | CENTER | | + + + + + + | CREATININE | 0.54 (L) | 0.6 - 1.1 MG/DL | [facility] | | | PLASMA | | [...] | + + + + + | [facility] | | [place] [address] | | | [facility] | [facility] | | | + + + + + documented in this encounter Visit Diagnoses Not on filedocumented in this encounter"
--- OUTSIDE RECORDS SUMMARY | ~2019-03-04 | XMS ---
Demographics + + + | Address | [address] | | | [place] [address] | + + + | Preferred Language | Unknown | + + + | Marital Status | Unknown | + + + | Mormon Affiliation | Unknown | + + + | Race | Unknown | + + + | Ethnic Group | Unknown | + + + Author + + + | Author | [facility] | + + + | Organization | [facility] | + + + | Address | [address] | | | [place] [address] | + + + | Phone | | + + + Care Team Providers + + + + | Care Slasher Tender Helper Name | Role | Phone | + + + + Unavailable | Unavailable | + + + + PROBLEMS + + + + + + + + | Type | Condition | ICD9-CM | [id number] | Onset | Condition | SNOMED | | | | Code | Code | Dates | Status | Code | + + + + + + + + | Assessment | Neck pain | M54.2 | | 18 June, | Active | [id number] | | | | | | 2016 | | | + + + + + + + + | Problem | Muscle | 724.8 | | | Active | [id number] | | | spasm of | | | | | | | | back | | | | | | + + + + + + + + | Problem | Cervicalgi | 723.1 | | | Active | 35629332 | | | a | | | | | | + + + + + + + + | Assessment | Tension | G44.209 | | 18 June, | Active | [id number] | | | headache | | | 2017 | | | + + + + + + + + | Assessment | Lumbar | M54.16 | | 18 June, | Active | [id number] | | | radicular | | | 2016 | | | | | pain | | | | | | + + + + + + + + | Problem | Cervical | 847.0 | | | Active | 565877605 | | | sprain | | | | | | + + + + + + + + | Problem | 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 | | | of | | | | | | | | unspecifie | | | | | | | | d nature | | | | | | | | of bone, | | | | | | | | soft | | | | | | | | tissue, | | | | | | | | and skin | | | | | | + + + + + + + + ALLERGIES + + + + +--------+ | Substance | Reaction | Event Type | Date | Status | + + + + +--------+ | Fish Oil | anaphylaxis | Drug Allergy | June, | Active | + + + + +--------+ | Aspirin | anaphylaxis | Drug Allergy | June, | Active | + + + + +--------+ | Wasps | anaphylaxis | Drug Allergy | June, | Active | + + + + +--------+ | citrus | anaphylaxis | Drug Allergy | June, | Active | + + + + +--------+ SOCIAL HISTORY No smoking Hx information available PLAN OF CARE VITAL SIGNS + + + + | Height | 61.5 in | 2016-07-06 | + + + + | Weight | 143.2 lbs | 2016-07-06 | + + + + | BMI | 26.62 kg/m2 | 2016-07-06 | + + + + | Temperature | 99.9 degrees Fahrenheit | 2016-07-06 | + + + + | Heart Rate | 75 /min | 2016-07-06 | + + + + | Blood pressure systolic | 111 mm Hg | 2016-07-06 | + + + + | Blood pressure diastolic | 76 mm Hg | 2016-07-06 | + + + + MEDICATIONS + + + + + + + +--------+ | Medicati | Instruct | Dosage | Frequenc | Start | End Date | Duration | Status | | on | ions | | y | Date | | | | + + + + + + + +--------+ | Flonase | Nasally | 2 sprays | 24h | 01 Jul, | | 30 | Active | | 50 | Once a | | | 2014 | | day(s) | | | MCG/ACT | day | | | | | | | + + + + + + + +--------+ | EpiPen | Injectio | as | | | | | Active | | 2-Mike | n PRN | directed | | | | | | | 0.3 | allergic | | | | | | | | MG/0.3M | | | | | | | | | | reaction | | | | | | | + + + + + + + +--------+ RESULTS No Results PROCEDURES + + + + + | Procedure | Date Ordered | Related Diagnosis | Body Site | + + + + + | Est Level IV | July 06, 2016 | | | | Extended | | | | + + + + + | DSCHRG MED/CURRENT | July 06, 2016 | | | | MED MERGE | | | | + + + + + | DOC MEDS VERIFIED | July 06, 2016 | | | | W/PT OR RE | | | | + + + + + IMMUNIZATIONS No Known Immunizations"
--- OUTSIDE RECORDS SUMMARY | ~2019-03-04 | XMS | Encounter Summary ---
Demographics + + + | Address | [address] | | | [place] [address] | + + + | Home Phone [...] + + + | Organization | [facility] | + + + | Address | Unknown | + + + | Phone | Unavailable | + + + Care Team Providers + +------+ + | Care Payroll Services Analyst Name | Role | Phone | [...] [place] | | | | | | [address] | | | +--------+ + + + [...] Latrell Sweeney MD - 03/20/2009 5:52 PM [facility] | | REPORT OF [id number] [place] [address] | | HIRO SAUCEDO CDATE OF OPERATION: [...] scalpel,carried laterally with bandage | | scissors. Production Superintendent's hand was placed into theuterine cavity, direct [...] | | 03/20/2009 17:46:39Job #: | | [id number] | | | | | | Electronically | | Signed | | | | | | | | | | | | | | CYNTHIA Ly NATALIE [id number] : | | [id number] DATE: 03/20/09 | | | | | |JCF/MedQ | | | | | | /[id number] | | | | | | Electronically Signed | | | | | | | | Latrell Sweeney MD | | | | | | | |HIRO SAUCEDO | |[id number] : 87 | |[id number] | |ADMIT DATE: 03/20/09 | + + documented in this encounter Visit Diagnoses Not on filedocumented in this encounter"
--- OUTSIDE RECORDS SUMMARY | ~2019-03-04 | XMS | Encounter Summary ---
Demographics + + + | Address | [address] | | | [place] [address] | + + + | Home Phone | | + + + | Preferred Language | Unknown | + + + | Marital Status | | + + + | Mosque Affiliation | CHR | + + + | Race | White | + + + | Ethnic Group | Unknown | + + + Author + + + | Author | [facility] | + + + | Organization | [facility] | + + + | Address | Unknown | + + + | Phone | Unavailable | + + + Care Team Providers + +------+ + | Care Door Operator Name | Role | Phone | + +------+ + PCP | Unavailable | + +------+ + Encounter Details +--------+ + + + + | Date | Type | Department | Care Team | Description | +--------+ + + + + | 08/19/ | Results | [facility] | Other, Faculty | | | 2008 | Only | [address] | [phone] | | | | | [place] | | | | | | [address] | | | +--------+ + + + [...] DIAGNOSTICS | | | | | | -[place] | | | | REFERENCE: | | | | | | | | | | | | | | | | | | NOT DETECTED | | | | + + + + + + | GONOCOCCUS | NOT DETECTEDComment: | | [facility] | | | PROBE | | | DIAGNOSTICS | | | | | | -[place] | | | | REFERENCE: | | [...] | [facility] | [address] | [place] [address] | [phone] | | [facility] | | | | + + + + + | [facility] | | | | | [facility] | | | | + + + + + documented in this encounter Visit Diagnoses Not on filedocumented in this encounter"
--- OUTSIDE RECORDS SUMMARY | ~2019-03-04 | XMS | Encounter Summary ---
Demographics + + + | Address | [address] | | | [place] [address] | + + + | Home Phone [...] | Author | [facility] | + + + | Organization | [facility] | + + + | Address | Unknown | + + + | Phone | Unavailable | + + + Care Team Providers + +------+ + | Care Spray Blender Name | Role | Phone | + [...] [place] | | | | | | [address] | | | | | | [phone] | | | | | | | [...] | Results for this | | UNI. 16740 | e | 10:14 PM | | procedure are in the | | | | PST | | results section. | + +--------+ + + + documented in this encounter Results PERIPHERAL DOPPLER UNI. [id number] (02/20/2009 10:14 PM PST) + + | [...] venous thrombosis | | | is noted. [id number] | | + + + + + [...] deep venous thrombosis is noted. | | [id number] | + + + +---------+ + + [...]
--- OUTSIDE RECORDS SUMMARY | ~2019-03-04 | XMS | Encounter Summary ---
Demographics + + + | Address | [address] | | | [place] [address] | + + + | Home Phone | | + + + | Preferred Language | Unknown | + + + | Marital Status | | + + + | Pentecostal Affiliation | CHR | + + + | Race | White | + + + | Ethnic Group | Unknown | + + + Author + + + | Author | [facility] | + + + | Organization | [facility] | + + + | Address | Unknown | + + + | Phone | Unavailable | + + + Care Team Providers + +------+ + | Care Wood Heel Fitter Machine Name | Role | Phone | + [...] +-------+ + + + | COUMADIN | ACID LOADER | | [facility] | | | CURRENT | | | A MEDICAL | | | DOSE | | | CENTER | | + +-------+ + + + | LAST DOSE | ACID LOADER | | [facility] | | | DATE | | | A MEDICAL | | | | | | CENTER | | + +-------+ + + + | LAST DOSE | ACID LOADER | | [facility] | | | TIME [...] + | [facility] | [address] | [place] [address] | | | MEDICAL CENTER | Streets | | | + + + + + documented in this encounter Visit Diagnoses Not on filedocumented in this encounter"
--- OUTSIDE RECORDS SUMMARY | ~2019-03-04 | XMS | Encounter Summary ---
Demographics + + + | Address | [address] | | | [place] [address] | + + + | Home Phone | | + + + | Preferred Language | Unknown | + + + | Marital Status | | + + + | Druze Affiliation | CHR | + + + | Race | White | + + + | Ethnic Group | Unknown | + + + Author + + + | Author | [facility] | + + + | Organization | [facility] | + + + | Address | Unknown | + + + | Phone | Unavailable | + + + Care Team Providers + +------+ + | Care Barber Name | Role | Phone | + [...] [place] | | | | | | [address] | | | | | | [phone] | | | | | | | [...] | Results for this | | UNI. 53476 | e | 10:14 PM | | procedure are in the | | | | PST | | results section. | + +--------+ + + + documented in this encounter Results PERIPHERAL DOPPLER UNI. [id number] (02/20/2009 10:14 PM PST) + + | [...] venous thrombosis | | | is noted. [id number] | | + + + + + [...] deep venous thrombosis is noted. | | [id number] | + + + +---------+ + + [...]
--- OUTSIDE RECORDS SUMMARY | ~2019-03-04 | XMS | Encounter Summary ---
Demographics + + + | Address | [address] | | | [place] [address] | + + + | Home Phone | | + + + | Preferred Language | Unknown | + + + | Marital Status | | + + + | Advent Affiliation | CHR | + + + | Race | White | + + + | Ethnic Group | Unknown | + + + Author + + + | Author | [facility] | + + + | Organization | [facility] | + + + | Address | Unknown | + + + | Phone | Unavailable | + + + Care Team Providers + +------+ + | Care Cotton Breeder Name | Role | Phone | + +------+ + PCP | Unavailable | + +------+ + Encounter Details +--------+ + + + + | Date | Type | Department | Care Team | Description | +--------+ + + + + | 03/04/ | Results | [facility] | Yevgeniy [...] | ZULEIKA W/DIFF, REFLEX | Routin | 03/04/2009 | | Results for this | | | e | 10:55 AM | | procedure are in the | | | | PST | | results section. | + +--------+ + + + | UREA NITROGEN, | Routin | 03/04/2009 | | Results for this | | PLASMA | e | 10:55 AM | | procedure are in the | | | | PST | | results section. | + +--------+ + + + documented in this encounter Results ZULEIKA W/DIFF, REFLEX (03/04/2009 10:55 AM PST) + + + + + + | Component | Value | Ref Range | Performed | Pathologist | | | | | At | Signature | + + + + + + | WHITE BLOOD | 10.5 | 4.3 - 11.0 X10 | [facility] | | | CELL COUNT | | 3/ul | A MEDICAL | | | | | | CENTER | | + + + + + + | HEMOGLOBIN | 10.6 (L) | 12.0 - 16.0 | [facility] | | | | | g/dL | A MEDICAL | | | | | | CENTER | | + + + + + + | RED BLOOD | 3.80 (L) | 4.2 - 5.4 X10 | [facility] | | | CELL COUNT | | 6/uL | A MEDICAL | | | | | | CENTER | | + + + + + + | HEMATOCRIT | 31.4 (L) | 38.0 - 47.0 % | [...] + + + + | MCH | 27.7 (L) | 28.0 - 32.0 pg | [facility] | | | | | | A MEDICAL | | | | | | CENTER | | + + + + + + | MCHC | 33.6 | 32 - 36 g/dL | [facility] | | | | | | A MEDICAL | | | | | | CENTER | | + + + + + + | RDW | 11.8 (L) | 12 - 15 fL | [facility] | | | | | | A MEDICAL | | | | | | CENTER | | + + + + + + | PLATELET | 242 | 150 - 450 X10 3 | [...] + + + + | NEUTROPHIL | 69.6 | 40 - 80 % | [facility] | | | % | | | A MEDICAL | | | | | | CENTER | | + + + + + + | LYMPHOCYTE | 20.3 | 20 - 50 % | [facility] [...] + + + | BASO % | 2.5 (H) | 0 - 1 % | [facility] | | | | | | A MEDICAL | | | | | | CENTER | | + + + + + + | MONOCYTE % | 6.6 | 2 - 10 % | [facility] | | | | | | A MEDICAL | | | | | | CENTER | | + + + + + + | BANDS % | BEAD SUPERVISOR | 0 - 7 % | [facility] [...] + + + + | [facility] | [address] | [place] [address] | | | MEDICAL CENTER | Streets | | | + + + + + UREA NITROGEN, PLASMA (03/04/2009 10:55 AM PST) + + + + + + | Component | Value | Ref Range | Performed | Pathologist | | | | | At | Signature | + + + + + + | BUN, PLASMA | 9 | 8 - 30 MG/DL | [facility] | | | (LAB) | | | A MEDICAL | | | | | | CENTER | | + + + + + + | CREATININE | 0.52 (L) | 0.6 - 1.1 MG/DL | [facility] | | | PLASMA | | | A MEDICAL | | | (LAB) | | | CENTER | | + + + + + + | URIC ACID, | 4.1 | 3.4 - 8.5 MG/DL | [facility] | | | PLASMA | | | A MEDICAL | | | (LAB) | | | CENTER | | + + + + + + | AST(SGOT) | 28 | 10 - 41 U/L | [facility] [...] + + | [facility] | [address] | [place] [address] | | | MEDICAL CENTER | Streets | | | + + + + + documented in this encounter Visit Diagnoses Not on filedocumented in this encounter"
--- OUTSIDE RECORDS SUMMARY | ~2019-03-04 | XMS | Encounter Summary ---
Demographics + + + | Address | [address] | | | [place] [address] | + + + | Home Phone [...] Team Providers + +------+ + | Care Logging Shovel Operator Name | Role | Phone | [...] [place] | | | | | | [address] | | | | | | [phone] | | | | | | | [...] | Results for this | | UNI. 18122 | e | 10:14 PM | | procedure are in the | | | | PST | | results section. | + +--------+ + + + documented in this encounter Results PERIPHERAL DOPPLER UNI. [id number] (02/20/2009 10:14 PM PST) + + | [...] venous thrombosis | | | is noted. [id number] | | + + + + + [...] deep venous thrombosis is noted. | | [id number] | + + + +---------+ + + [...]
--- OUTSIDE RECORDS SUMMARY | ~2019-03-04 | XMS ---
Demographics + + + | Address | [address] | | | [place] [address] | + + + | Preferred Language | Unknown | + + + | Marital Status | Unknown | + + + | Druze Affiliation | Unknown | + + + | Race | Unknown | + + + | Ethnic Group | Unknown | + + + Author + + + | Author | [facility] | + + + | Organization | [facility] | + + + | Address | [address] | | | [place] [address] | + + + | Phone | | + + + Care Team Providers + + + + | Care Cardiac Care Nurse Name | Role | Phone | + + + + Unavailable | Unavailable | + + + + PROBLEMS +---------+ + + +--------+ + + | Type | Condition | ICD9-CM | [id number] | Onset | Condition | SNOMED | | | | Code | Code | Dates | Status | Code | +---------+ + + +--------+ + + | Problem | Muscle | 724.8 | | | Active | [id number] | | | spasm of | | | | | | | | back | | | | | | +---------+ + + +--------+ + + | Problem | Cervicalgi | 723.1 | | | Active | [id number] | | | a | | | | | | +---------+ + + +--------+ + + | Problem | Cervical | 847.0 | | | Active | [id number] | | | sprain | | | | | | +---------+ + + +--------+ + + | Problem | Neoplasm | 239.2 | | | Active | [id number] | | | of | | | [...] skin | | | | | | +---------+ + + +--------+ + + ALLERGIES Unknown Allergies SOCIAL HISTORY No smoking Hx information available PLAN OF CARE VITAL SIGNS MEDICATIONS + + +---------+ + + + +--------+ | Medicati | Instruct | Dosage | Frequenc | Start | End Date | Duration | Status | | on | ions | | y | Date | | | | + + +---------+ + + + +--------+ | Ventolin | Inhalati | 2 puffs | | 07 Sep, | | | Active | | HFA 108 | on every | | | 2016 | | | | | (90 | 4 hrs | | | | | | | | Base) | PRN | | | | | | | | MCG/ACT | SOB/whee | | | | | | | | | zing | | | | | | | + + +---------+ + + + +--------+ RESULTS No Results PROCEDURES No Known procedures IMMUNIZATIONS No Known Immunizations"
--- OUTSIDE RECORDS SUMMARY | ~2019-03-04 | XMS | Encounter Summary ---
Demographics + + + | Address | [address] | | | [place] [address] | + + + | Home Phone | | + + + | Preferred Language | Unknown | + + + | Marital Status | | + + + | Samaritan Affiliation | CHR | + + + [...] Team Providers + +------+ + | Care Rotary Lithographic Press Operator Name | Role | Phone | + +------+ + PCP | Unavailable | + +------+ + Encounter Details +--------+ + + + + | Date | Type | Department | Care Team | Description | +--------+ + + + + | 05/03/ | Results | [facility] | Other, Faculty | | | 2009 | Only | [address] | [phone] | | | | | [place] | | | | | | [address] | | | +--------+ + + + [...] DIAGNOSTICS | | | | | | -[place] | | | | REFERENCE: | | | | | | | | | | | | | | | | | | NOT DETECTED | | | | + + + + + + | GONOCOCCUS | NOT DETECTEDComment: | | [facility] | | | PROBE | | | DIAGNOSTICS | | | | | | -[place] | | | | REFERENCE: | | [...] + + + | [facility] | [address] | [place] [address] | [phone] | | DI[facility]ST[facility] | | | | + + + + + | [facility] | | | | | [facility] | | | | + + + + + documented in this encounter Visit Diagnoses Not on filedocumented in this encounter"
--- OUTSIDE RECORDS SUMMARY | ~2019-03-04 | XMS | Encounter Summary ---
Demographics + + + | Address | [address] | | | [place] [address] | + + + | Home Phone | | + + + | Preferred Language | Unknown | + + + | Marital Status | | + + + | Orthodoxy Affiliation | CHR | + + + | Race | White | + + + | Ethnic Group | Unknown | + + + Author + + + | Author | [facility] | + + + | Organization | [facility] | + + + | Address | Unknown | + + + | Phone | Unavailable | + + + Care Team Providers + +------+ + | Care Cephalometric Tracer Name | Role | Phone | [...] + + + | BANDS % | SULPHATE TESTER | 0 - 7 % | [...] | [address] | [place] [address] | | | MEDICAL CENTER | Streets [...] + + | [facility] | [address] | [place] [address] | | | MEDICAL CENTER | Streets | | | + + + + + documented in this encounter Visit Diagnoses Not on filedocumented in this encounter"
--- OUTSIDE RECORDS SUMMARY | ~2019-03-04 | XMS | Encounter Summary ---
Demographics + + + | Address | [address] | | | [place] [address] | + + + | Home Phone [...] Team Providers + +------+ + | Care Tire Specialist Name | Role | Phone | [...] +-------+ + + + | COUMADIN | STEREOTYPER HELPER | | [facility] | | | CURRENT | | | A MEDICAL | | | DOSE | | | CENTER | | + +-------+ + + + | LAST DOSE | STEREOTYPER HELPER | | [facility] | | | DATE | | | A MEDICAL | | | | | | CENTER | | + +-------+ + + + | LAST DOSE | STEREOTYPER HELPER | | [facility] | | | TIME [...] + | [facility] | [address] | [place] [address] | | | MEDICAL CENTER | Streets | | | + + + + + documented in this encounter Visit Diagnoses Not on filedocumented in this encounter"
--- OUTSIDE RECORDS SUMMARY | ~2019-03-04 | XMS | Encounter Summary ---
Demographics + + + | Address | [address] | | | [place] [address] | + + + | Home Phone | | + + + | Preferred Language | Unknown | + + + | Marital Status | | + + + | Scientologist Affiliation | CHR | + + + [...] Team Providers + +------+ + | Care Cardiology Nurse Name | Role | Phone | + +------+ + PCP | Unavailable | + +------+ + Encounter Details +--------+ + + + + | Date | Type | Department | Care Team | Description | +--------+ + + + + | 03/20/ | Results | [facility] | Other, Faculty | | | 2009 | Only | [address] | [phone] | | | | | [place] | | | | | | [address] | | | +--------+ + + + [...] + + + + | WBC, | ASSISTANT FARM OPERATIONS MANAGER | X10 3/uL | [facility] | | [...] + + + | BANDS % | ASSISTANT FARM OPERATIONS MANAGER | 0 - 7 % | [facility] [...] + + + + | EOSINOPHIL% | ASSISTANT FARM OPERATIONS MANAGER | 0 - 5 % | [facility] | | | , MANUAL | | | A MEDICAL | | | | | | CENTER | | + + + + + + | BASOPHIL%, | ASSISTANT FARM OPERATIONS MANAGER | 0 - 1 % | [facility] | | | MANUAL | | | A MEDICAL | | | | | | CENTER | | + + + + + + | REACTIVE | ASSISTANT FARM OPERATIONS MANAGER | 0.0 - 4.0 % | [facility] [...] + + + + | METAMYELOCY | ASSISTANT FARM OPERATIONS MANAGER | 0 - 0 % | [facility] | | | TISH % | | | A MEDICAL | | | | | | CENTER | | + + + + + + | MYELOCYTES | ASSISTANT FARM OPERATIONS MANAGER | 0 - 0 % | [facility] | | | % | | | A MEDICAL | | | | | | CENTER | | + + + + + + | PROMYELOCYT | ASSISTANT FARM OPERATIONS MANAGER | 0 - 0 % | [facility] | | | ES % | | | A MEDICAL | | | | | | CENTER | | + + + + + + | BLASTS | ASSISTANT FARM OPERATIONS MANAGER | 0 - 0 % | [facility] [...] + + + + | NUCLEATED | ASSISTANT FARM OPERATIONS MANAGER | | [facility] | | | RBCS | | | A MEDICAL | | | | | | CENTER | | + + + + + + | GIANT PLT | ASSISTANT FARM OPERATIONS MANAGER | | [facility] | | | | [...] | + + + + + | [facility] | [address] | [place] [address] | | | MEDICAL CENTER | Streets [...] + + + + | WBC, | ASSISTANT FARM OPERATIONS MANAGER | X10 3/uL | [facility] | | [...] + + + | BANDS % | ASSISTANT FARM OPERATIONS MANAGER | 0 - 7 % | [facility] [...] + + + + | EOSINOPHIL% | ASSISTANT FARM OPERATIONS MANAGER | 0 - 5 % | [facility] | | | , MANUAL | | | A MEDICAL | | | | | | CENTER | | + + + + + + | BASOPHIL%, | ASSISTANT FARM OPERATIONS MANAGER | 0 - 1 % | [facility] | | | MANUAL | | | A MEDICAL | | | | | | CENTER | | + + + + + + | REACTIVE | ASSISTANT FARM OPERATIONS MANAGER | 0.0 - 4.0 % | [facility] [...] + + + + | METAMYELOCY | ASSISTANT FARM OPERATIONS MANAGER | 0 - 0 % | [facility] | | | TISH % | | | A MEDICAL | | | | | | CENTER | | + + + + + + | MYELOCYTES | ASSISTANT FARM OPERATIONS MANAGER | 0 - 0 % | [facility] | | | % | | | A MEDICAL | | | | | | CENTER | | + + + + + + | PROMYELOCYT | ASSISTANT FARM OPERATIONS MANAGER | 0 - 0 % | [facility] | | | ES % | | | A MEDICAL | | | | | | CENTER | | + + + + + + | BLASTS | ASSISTANT FARM OPERATIONS MANAGER | 0 - 0 % | [facility] [...] + + + + | NUCLEATED | ASSISTANT FARM OPERATIONS MANAGER | | [facility] | | | RBCS | | | A MEDICAL | | | | | | CENTER | | + + + + + + | GIANT PLT | ASSISTANT FARM OPERATIONS MANAGER | | [facility] | | | | [...] | + + + + + | [facility] | And | [place] [address] | | | MEDICAL CENTER | Streets | | | + + + + + documented in this encounter Visit Diagnoses Not on filedocumented in this encounter"
--- OUTSIDE RECORDS SUMMARY | ~2019-03-04 | XMS | Encounter Summary ---
Demographics + + + | Address | [address] | | | [place] [address] | + + + | Home Phone | | + + + | Preferred Language | Unknown | + + + | Marital Status | | + + + | Jainism Affiliation | CHR | + + + | Race | White | + + + | Ethnic Group | Unknown | + + + Author + + + | Author | [facility] | + + + | Organization | [facility] | + + + | Address | Unknown | + + + | Phone | Unavailable | + + + Care Team Providers + +------+ + | Care Tutorial Laboratory Supervisor Name | Role | Phone | + [...] + + + | BANDS % | COMMERCIAL LEASE ADMINISTRATOR | 0 - 7 % | [facility] [...] | [address] | [place] [address] | | | MEDICAL CENTER | Streets [...] | [address] | [place] [address] | | | MEDICAL CENTER | Streets | | | + + + + + documented in this encounter Visit Diagnoses Not on filedocumented in this encounter"
--- OUTSIDE RECORDS SUMMARY | ~2019-03-04 | XMS | Encounter Summary ---
Demographics + + + | Address | [address] | | | [place] [address] | + + + | Home Phone | | + + + | Preferred Language | Unknown | + + + | Marital Status | | + + + | Yazidism Affiliation | CHR | + + + | Race | White | + + + | Ethnic Group | Unknown | + + + Author + + + | Author | [facility] | + + + | Organization | [facility] | + + + | Address | Unknown | + + + | Phone | Unavailable | + + + Care Team Providers + +------+ + | Care Locker Room Attendant Name | Role | Phone | [...] + + + | [facility] | [address] [place] | [place] [address] | | | [facility] | [place] | | | + + + + + documented in this encounter Visit Diagnoses Not on filedocumented in this encounter"
--- OUTSIDE RECORDS SUMMARY | ~2019-03-04 | XMS | Clinical Summary ---
Demographics + + + | Address | [address] | | | [place] [address] | + + + | Home Phone [...] Team Providers + +------+ + | Care Valuation Consultant Name | Role | Phone | + +------+ + PCP | Unavailable | + +------+ + Source Comments [facility] is fully live on both [facility] and [facility] Allergies Not on File Medications [...]
--- OUTSIDE RECORDS SUMMARY | ~2019-03-04 | XMS | Clinical Summary ---
Demographics + + + | Address | [address] | | | [place] [address] | + + + | Home Phone [...] Team Providers + +------+ + | Care Brazer Induction Name | Role | Phone | + +------+ + PCP | Unavailable | + +------+ + Source Comments [facility] is fully live on both [facility] and [facility] Allergies Not on File Medications Not on [...]
--- OUTSIDE RECORDS SUMMARY | ~2019-03-04 | XMS | Encounter Summary ---
Demographics + + + | Address | [address] | | | [place] [address] | + + + | Home Phone [...] Team Providers + +------+ + | Care Manager Shipping Name | Role | Phone | + [...] [place] | | | | | | [address] | | | | | | [phone] | | | | | | | [...] | Results for this | | CHEST [id number] | e | 12:17 AM | | procedure are in the | | | | PDT | | results section. | + +--------+ + + + documented in this encounter Results ABDOMEN 2 VIEW PA CHEST [id number] (12/06/2005 12:17 AM PDT) + + | [...]
--- OUTSIDE RECORDS SUMMARY | ~2019-03-04 | XMS | Encounter Summary ---
Demographics + + + | Address | [address] | | | [place] [address] | + + + | Home Phone | | + + + | Preferred Language | Unknown | + + + | Marital Status | | + + + | Hindu Affiliation | CHR | + + + | Race | White | + + + | Ethnic Group | Unknown | + + + Author + + + | Author | [facility] | + + + | Organization | [facility] | + + + | Address | Unknown | + + + | Phone | Unavailable | + + + Care Team Providers + +------+ + | Care Certification And Selection Specialist Name | Role | Phone | [...] + + + | [facility] | [address] [place] | [place] [address] | | | [facility] | [place] | | | + + + + + documented in this encounter Visit Diagnoses Not on filedocumented in this encounter"
--- OUTSIDE RECORDS SUMMARY | ~2019-03-04 | XMS | Encounter Summary ---
Demographics + + + | Address | [address] | | | [place] [address] | + + + | Home Phone [...] Team Providers + +------+ + | Care Career Portals Teacher Name | Role | Phone | + +------+ + PCP | Unavailable | + +------+ + Encounter Details +--------+ + + + + | Date | Type | Department | Care Team | Description | +--------+ + + + + | 08/19/ | Results | [facility] | Other, Faculty | | | 2008 | Only | [address] | [phone] | | | | | [place] | | | | | | [phone] | | | +--------+ + + + [...] DIAGNOSTICS | | | | | | -[place] | | | | REFERENCE: | | | | | | | | | | | | | | | | | | NOT DETECTED | | | | + + + + + + | GONOCOCC[facility] | NOT DETECTEDComment: | | [facility] | | | PROBE | | | DIAGNOST[facility] | | | | | | -[place] | | | | REFERENCE: | | [...] + + + | [facility] | [address] | [place] [address] | [phone] | | [facility] | | | | + + + + + | [facility] | | | | | [facility] | | | | + + + + + documented in this encounter Visit Diagnoses Not on filedocumented in this encounter"
[~2019-03-04 09:23] MED LIST: ALBUTEROL2.5 MG/3 M INH; AMOXICILLIN500 MG PO; CEPHALEXIN500 MG PO; DEPLIN15 MG PO; EPIPEN 2-P0.3 MG/0.3 IM; GABAPENTIN300 MG PO; NORCO 5-325 TA1 EACH PO; NORCO 7.5-3251 EACH PO; NYQUIL D COLD295 ML PO; OMEPRAZOLE20 MG PO; PREDNISONE20 MG PO; PROVENTIL HFA6.7 GM INH; PSEUDOEPHEDRINE60 MG PO; SEROQUEL50 MG PO; TAMIFLU75 MG PO; TESSALON PERLE100 MG PO; TRAMADOL HCL50 MG PO; ZOFRAN ODT8 MG PO; ZOLOFT100 MG PO; [UNRECOGNIZED DRUG - OTHER] PO
[2019-03-04] MEDS ORDERED: BACTRIM DS TAB1 EACH PO (09:40)
[2019-03-04] MEDS ORDERED: SETLAKIN 0.151 EACH PO (09:40)
[2019-03-04] MEDS ORDERED: ONDANSETRON ODT4 MG PO (09:40)
[2019-03-04] MEDS ORDERED: ZYRTEC10 MG PO (17:00)
--- NOTE | 2019-03-04 17:20 | NUR ---
PT ARRIVED TO UNIT AT 1600 VIA STRETCHER. TRANSFERRED TO HOSPITAL BED INDEPENDENTLY. PT ALERT AND ORIENTED TO ALL. REPORTS 8/10 PAIN ACROSS MOST OF TRUNK AREA, CONCENTRATED IN LOWER BACK. REPORTS NAUSEA WITH "ACID COMING UP THROAT". MEDICATED WITH IV MORPHINE AND COMPAZINE (SEE EMAR). IVF STARTED, IV SITE TO LEFT AC, DRESSING CDI, FLUSHES EASILY. STRAIGHT CATH COMPLETED PER DR. MA, APPROX 200ML OF DARK YELLOW URINE OBTAINED. ASSESSMENT COMPLETED. PT HAS NEW TATTOO TO RIGHT OUTER THIGH JUST COMPLETED ON 02/25/2019. PT TAKING SIPS OF WATER AND SEVEN UP, TOOK A FEW BITES OF JELLO. AND CHILDREN AT BEDSIDE. PT AND EDUCATED ON POC. VERBALIZE UNDERSTANDING. CALL LIGHT WITHIN REACH.
--- NOTE | 2019-03-04 18:08 | NUR ---
RECEIVED FROM ER THAT PT HAD MULTIPLE MISSED VOIDS PRIOR TO ADMISSION.
--- NOTE | 2019-03-04 18:21 | NUR ---
PT SLEEPING SOUNDLY UPON ENTERING ROOM. AROUSES EASILY TO VOICE BUT VERY DROWSY. OBTAINED VS. NOTIFIED DR. MA. RECIEVED ORDER FOR BLOOD CULTURES AND TYLENOL ADMINISTRATION. PT REQUESTED MORE JELLO, GIVEN AT THIS TIME. CALL ANSHUL YEE.
--- NOTE | 2019-03-04 19:28 | NUR ---
pt used call light to ask for assistance into the restroom. She tolerated well, no issues, resulting in 400ccs of urine. Nothing further needed by pt.
--- NOTE | 2019-03-04 20:09 | NUR ---
PT SITTING UP IN BED, DROWSY. PT REPORTS PAIN TO HER ABD AND BACK TO BE A 6/10, STATES THIS IS TOLERABLE FOR HER. PT'S SIGNIFICANT OTHER AT THE BEDSIDE. ASSESSMENT COMPLETED. PT AMBULATED TO THE RESTROOM. TOLERATED WELL WITH SBA. PT REPORTS SHE STILL FEELS HOT, IS NOT DIAPHORETIC. NO FEVER AT THIS TIME.
--- NOTE | 2019-03-04 20:28 | NUR ---
PT REPORTS HER LEFT ARM TO BE BURNING WHERE HER IV FLUID IS INFUSING. PT IS RECEIVING POTASSIUM WITHIN HER BAG. IV CHECKED FOR PATENCY. BLOOD RETURNED EASILY, NO SWELLING, REDNESS, INFILTRATION OR OTHER CONCERNS NOTED. OFFERED TO CHANGE IV SITE. PT DENIES WANTING TO BE POKED AGAIN. IV FLUIDS SLOWED DOWN FROM 150 ML/HR TO 100 ML/HR FOR COMFORT.
--- NOTE | 2019-03-04 21:17 | NUR ---
pt used call light to use restroom, she resulted in 450ccs of urine. Pt states she is hungry, I offered her some chicken broth and she accepted, nothing further needed at this time.
--- NOTE | 2019-03-04 21:22 | NUR ---
previous note was written by myself, not junior.
--- NOTE | 2019-03-04 21:50 | NUR ---
PT REPORTS HER ARM PAIN TO HAVE LESSENED SINCE SLOWING THE ADMINISTRATION OF THE POTASSIUM. CRACKERS PROVIDED PER REQUEST.
--- NOTE | 2019-03-05 00:13 | NUR ---
PT RESTING IN BED. OPENS HER EYES TO VERBAL. STATES SHE IS FEELING GOOD AND FALLS BACK TO SLEEP.
--- NOTE | 2019-03-05 00:42 | NUR ---
HUNG NEW BAG IV FLUIDS, PT WOKE TO HAVE BAND SCANNED, THEN BACK TO SLEEP. CALL LIGHT WITHIN REACH.
--- NOTE | 2019-03-05 01:00 | NUR ---
SHIFT REPORT RECIEVED FROM IDALIA CALLE. PT AWAKE IN ROOM. PT COMPLAINS OF ABD PAIN. IDALIA CALLE WILL PROVIDE PRN PAIN MED. NO OTHER NEEDS. CALL LIGHT IN REACH.
--- NOTE | 2019-03-05 01:22 | NUR ---
PT REPORTS HAVING MID EPIGASTRIC PAIN. PT GIVEN LEMON [place] SODA AND A TYLENOL. PT DENIES ANY SOB, DIAPHORESIS, NECK, OR ARM PAIN, NAUSEA, OR OTHER SYMPTOMS. EDUCATED PT TO NOTIFY STAFF IF SHE STARTS HAVING ANY OTHER SYMPTOMS. VITAL SIGNS COMPLETED AND ARE NOT CHANGED SINCE PREVIOUS VITAL SIGNS. GIL DAVIES RN NOTIFIED OF THIS SHE IS TAKING OVER HER CARE. REPORT GIVEN.
--- NOTE | 2019-03-05 02:28 | NUR ---
PT UP TO BR AND BACK TO BED. ASSESSMENT, VS AND I&O COMPLETED. IV FLUIDS INFUSING PER ORDER. PAIN IN UPPER MID EPIGASTRIC AREA 07/29. PT DENIES NEED FOR FURTHER PAIN INTERVENTION. CALL LIGHT IN REACH.
--- NOTE | 2019-03-05 04:32 | NUR ---
PT CALLS TO USE BR. UP TO BR, BACK TO BED. NO OTHER NEEDS. CALL LIGHT IN REACH.
--- NOTE | 2019-03-05 07:48 | NUR ---
BEDSIDE SHIFT REPORT RECEIVED FROM GIL CALLE. WHITE BOARD UPDATED. PATIENT AWAKE LYING IN BED. REPORTS NO NAUSEA NOW, BUT DID HAVE IT ON AND OFF THROUGHOUT THE NIGHT, BUT RESOLVED WITHOUT PHARMACOLOGIC INTERVENTION. ORDERED BREAKFAST FOR PATIENT. PLAN TO CONTINUE ROCEPHIN THIS MORNING. WBC NORMALIZED. NO OTHER NEEDS AT THIS TIME.
--- NOTE | 2019-03-05 08:51 | NUR ---
APPETITE POOR, BUT IMPROVING. ROCEPHIN INFUSING NOW. PT REPORTED SHE HAD AN EXTRA LARGE BM THIS MORNING. STOOL SOFTENERS HELD. PT WATCHING TELEVISION. AWAITING TO BRING CONTROL FROM HOME AND CLOTHES TO WEAR AFTER SHOWER.
--- NOTE | 2019-03-05 09:26 | NUR ---
PATIENT IN SHOWER NOW. SHOWERING INDEPENDENTLY. SET UP BY TAMMI PARIS AND THIS RN. SALINE LOCKED FOR SHOWER.
--- NOTE | 2019-03-05 10:46 | NUR ---
In and spokew hernan Sophie and her . She is beginning to feel much better. C/o of small amt of back pain, but overall feeling better. Pt lives in [place] with her spouse, Isaiah, and two children. She works for [employer] and states will help with shopping and house hold tasks. Pt plans on discharging home and taking a few days off when discharged.
--- NOTE | 2019-03-05 12:46 | NUR ---
PT STATES UNDERSTANDING OF HER CURRENT ILLNESS, AND IS ABLE TO REPEAT SIGNS AND SX OF THIS. KNOWS WHEN TO FOLLOW UP WITH DR. WE TALKED ABOUT DRINKING PLENTY OF WATER AND WE TALKED ABOUT CAFFEINATED BEVERAGES, SHE IS ABLE TO VERBALIZE BACK. DENIES QUESTIONS AT THIS TIME.
--- NOTE | 2019-03-05 13:01 | NUR ---
PT RESTING IN BED, ALERT AND ORIENTED WITH NEREIDA AT BS. PTS' FIRST TIME WITH KIDNEY INFECTION, SEEMS TO BE DEALING APPROPRIATELY. EXTENDED A BLESSING, WILL FOLLOW NEEDED
--- NOTE | 2019-03-05 17:51 | NUR ---
APPETITE IMPROVED. ABLE TO TOLERATE REGULAR DIET. NO NAUSEA. TYLENOL GIVEN X1. INDEPENDENT AMBULATION. URINE OUTPUT ADEQUATE. PAIN WELL CONTROLLED. LIKELY DISCHARGE TOMORROW AFTER MORNING MEDICATION.
--- NOTE | 2019-03-05 19:05 | NUR ---
PT RESTING IN BED, EATCHING TV. PAIN 7/10 IN FLANK. BLU RN WILL PROVIDE PAIN MEDICATION. SHIFT REPORT RECIEVED FROM BLU CALLE. IV CDI. IV FLUIDS INFUSING PER ORDER. NO OTHER NEEDS AT THIS TIME. CALL LIGHT IN REACH.
--- NOTE | 2019-03-05 20:22 | NUR ---
ASSESSMENT, I&O AND VS COMPLETED. IV DRESSING CHANGED, CDI, WNL, FLUSHED WELL. IV FLUIDS INFUSING PER ORDER. PT HAD SEVERAL LARGE LOOSE STOOLS TODAY, DECLINED LAXATIVE AND STOOL SOFTER. POPSICLE PROVIDED. NO OTHER NEEDS AT THIS TIME. CALL LIGHT IN REACH.
--- NOTE | 2019-03-05 21:19 | NUR ---
PT CALLED STATED HER IV WAS "LEAKING AGAIN". ASSESSED, IV NOT FLUSHABLE, WITH FLUID LEAKING FROM INSERTION SITE. IV DC'D INTACT, WITH PT EXPRESSING ANXIETY RELATED TO TOUCHING THE IV, AND THE THOUGHT OF A NEW IV. PRESSURE DRESSING APPLIED.
--- NOTE | 2019-03-05 22:00 | NUR ---
PT AWAKE IN ROOM, TALKING WITH SPOUSE. NO NEEDS, CALL LIGHT IN REACH.
--- NOTE | 2019-03-05 23:40 | NUR ---
IV STARTED IN RIGHT FA. FLUSHED WELL, TOLERATED WELL. IV FLUIDS INFUSING PER ORDER. NO OTHER NEEDS. CALL LIGHT IN REACH.
--- NOTE | 2019-03-06 01:14 | NUR ---
PT RESTING IN BED, EYES CLOSED. RR 14, EVEN, UNLABORED. CALL LIGHT IN REACH.
--- NOTE | 2019-03-06 01:48 | NUR ---
HELPED PT TO THE BATHROOM AND BACK TO BED. WARM BLANKET GIVEN PER PT REQUEST. BEDSIDE TABLE AND CALL LIGHT IN REACH.
--- NOTE | 2019-03-06 02:39 | NUR ---
PT RESTING IN BED, EYES CLOSED. RR 14, EVEN, UNLABORED. CALL LIGHT IN REACH.
--- NOTE | 2019-03-06 05:20 | NUR ---
VITALS AND I&OS DONE AND CHARTED. HELPED PT TO THE BATHROOM AND BACK TO BED. I GOT HER PUDDING AND CRACKERS, FRESH ICE WATER AND A CUP OF ICE PER HER REQUEST. PT ALSO ASKED FOR PAIN MEDICATION. I INFORMED HER RN GIL. PT NEEDS NOTHING MORE AT THIS TIME. BEDSIDE TABLE AND CALL LIGHT IN REACH.
--- NOTE | 2019-03-06 05:28 | NUR ---
PT STATES SHE HAS 4/10 PAIN IN RIGHT FLANK. PRN PAIN MED PROVIDED. NO OTHER NEEDS. CALL LIGHT IN REACH.
--- NOTE | 2019-03-06 05:49 | NUR ---
IV FLUIDS COMPLETE PER ORDER. RIGHT HAND IV SALINE LOCKED. NO OTHER NEEDS, CALL LIGHT IN REACH.
--- NOTE | 2019-03-06 06:46 | NUR ---
PT SLEPT MOST OF SHIFT. PAIN MANAGED WITH PRN PAIN MEDS. UO SUFFICIENT, VSS, A&OX4, GCS 15. ABD SOFT, NONTENDER. NEW IV STARTED IN RIGHT FA, FLUSHED WELL, CDI, WNL. PT TOLERATED IV MEDICATION WELL. 1PA, SBA
--- NOTE | 2019-03-06 07:10 | NUR ---
REPORT RECIEVED FROM HEALTH CARE CONSULTANT RN. PT IN BED SITH EYES CLOSED. RESPIRATIONS EQUAL AND NONLABORED. CALL LIGHT IN REACH
--- NOTE | 2019-03-06 08:06 | NUR ---
PATIENT RESTING IN BED. SAT UP TO PLACE BREAKFAST ORDER. CALL LIGHT IN REACH. NO FURTHER NEEDS AT THIS TIME.
--- NOTE | 2019-03-06 09:52 | NUR ---
PT SITTING UP IN BED FOR BREAKFAST. ATE 100%. DENIES NAUSEA. REPORTS SOME PAIN TO LEFT SIDE. ABX STARTED. PT REFUSING STOOL SOFTENERS R/T MULTIPLE BOWEL MOVEMENTS. URINE OUTPUT Q/S. REPORTS SOME ABDOMINAL PAIN WITH URINATION. DENIES NEEDS. CALL LIGHT IN REACH.
[2019-03-06] MEDS ORDERED: CEFPODOXIME PR200 MG PO (11:15)
--- NOTE | 2019-03-06 11:15 | NUR ---
MED REC COMPLETE
[2019-03-06] MEDS ORDERED: IRON325 M1 PO (11:20)
[2019-03-06] MEDS ORDERED: HYDROXYZINE HCL10 MG PO (11:21)
[2019-03-06] MEDS ORDERED: EPIN0.3P IM (11:21)
[2019-03-06] MEDS ORDERED: AZO URINARY TR1 EAC1 PO (11:21)
--- NOTE | 2019-03-06 12:00 | NUR ---
Spoke with Sophie. She plans on discharging today and is dressed. States family and pets will be excited for her to be home. Denies back pain or nausea. Spouse will pick her up and take her home when orders are completed.
--- NOTE | 2019-03-06 14:05 | NUR ---
DISCHARGE INSTRUCTIONS PROVIDED. QUESTIONS ANSWERED. PT WHEELED OUT. NO PAIN. VITALS STABLE.
== END 2019-03-06 13:33 | disposition home or self-care (01) | DRG 690 ==
LOC: ED 09:23 → MS 15:40
PROVIDERS: ADMIT Internal Medicine
DX: N10 Acute pyelonephritis (principal); N80.9 Endometriosis, unspecified; E87.6 Hypokalemia; Z79.899 Other long term (current) drug therapy; Z79.3 Long term (current) use of hormonal contraceptives; Z88.8 Allergy status to other drugs, medicaments and biological substances
CPT/HCPCS: 36415; 74176; 80048; 80053; 81001; 83605; 84703; 85025; 96365; 96375; 96376; 99285-25; J0696; J0780; J1170; J1650; J2270; J2405; J3480; J7030; J7121

== ENCOUNTER 2019-07-21 11:27 | Emergency (ER) | payer BC, OTHER ==
[~2019-07-21] VITALS: Ht 154.9 cm; Wt 65.8 kg
--- OUTSIDE RECORDS SUMMARY | ~2019-07-21 | XMS | Encounter Summary ---
Demographics + + + | Address | [address] | | | [place] [address] | + + + | Home Phone | | + + + | Preferred Language | Unknown | + + + | Marital Status | | + + + | Taoism Affiliation | CHR | + + + | Race | White | + + + | Ethnic Group | Unknown | + + + Author + + + | Author | [facility] | + + + | Organization | [facility] | + + + | Address | Unknown | + + + | Phone | Unavailable | + + + Care Team Providers + +------+ + | Care Conservation Specialist Name | Role | Phone | + +------+ + PCP | Unavailable | + +------+ + Encounter Details +--------+ + + + + | Date | Type | Department | Care Team | Description | +--------+ + + + + | 10/05/ | Results | [facility] | Yevgeniy [...] | + +--------+ + + + | INR | Routin | 10/05/2009 | | Results for this | | | e | 2:42 PM | | procedure are in the | | | | PDT | | results section. | + +--------+ + + + documented in this encounter Results INR (10/05/2009 2:42 PM PDT) + +-------+ + + + | Component | Value | Ref Range | Performed | Pathologist | | | | | At | Signature | + +-------+ + + + | PROT[facility] | 11.2 | 9.6 - 12.3 SEC | [facility] | | | TIME | | | A MEDICAL | | | | | | CENTER | | + +-------+ + + + | INR | 1.0 | 1.0 - 1.1 | [facility] | | | | | | A MEDICAL | | | | | | CENTER | | + +-------+ + + + | ON | NO | | [facility] | | | COUMADIN? | | | A MEDICAL | | | | | | CENTER | | + +-------+ + + + | COUMADIN | ADMITTING REPRESENTATIVE | | [facility] | | | CURRENT | | | A MEDICAL | | | DOSE | | | CENTER | | + +-------+ + + + | LAST DOSE | ADMITTING REPRESENTATIVE | | [facility] | | | DATE | | | A MEDICAL | | | | | | CENTER | | + +-------+ + + + | LAST DOSE | ADMITTING REPRESENTATIVE | | [facility] | | | TIME | | | A MEDICAL | | [...] | + + + + + | [facility] | [place] | [place] | | | [facility] | [facility] | [address] | | + + + + + documented in this encounter Visit Diagnoses Not on filedocumented in this encounter"
--- OUTSIDE RECORDS SUMMARY | ~2019-07-21 | XMS | Encounter Summary ---
Demographics + + + | Address | [address] | | | [place] [address] | + + + | Home Phone | | + + + | Preferred Language | Unknown | + + + | Marital Status | | + + + | Jehovah'S Witness Affiliation | CHR | + + + | Race | White | + + + | Ethnic Group | Unknown | + + + Author + + + | Author | [facility] | + + + | Organization | [facility] | + + + | Address | Unknown | + + + | Phone | Unavailable | + + + Care Team Providers + +------+ + | Care Gta Name | Role | Phone | + +------+ + PCP | Unavailable | + +------+ + Encounter Details +--------+ + + + + | Date | Type | Department | Care Team | Description | +--------+ + + + + | 03/20/ | Results | [facility] | Other, Faculty | | | 2009 | Only | [address] | [phone] | | | | | [place] | | | | | | [address] | | | +--------+ + + + [...] + +--------+ + + + | CBC W/DIFF, REFLEX | Routin | 03/21/2009 | | Results for this | | | e | 5:52 AM | | procedure are in the | | | | PST | | results section. | + +--------+ + + + | CBC W/DIFF, REFLEX | Routin | 03/20/2009 | | Results for this | | | e | 7:30 AM | | procedure are in the | | | | PST | | results section. | + +--------+ + + + documented in this encounter Results CBC W/DIFF, REFLEX (03/21/2009 5:52 AM PST) + + + + + + | Component | Value | Ref Range | Performed | Pathologist | | | | | At | Signature | + + + + + + | WHITE BLOOD | 28.8 (H) | 4.3 - 11.0 X10 | [facility] | | | CELL COUNT | | 3/ul | A MEDICAL | | | | | | CENTER | | + + + + + + | WBC, | HEALTHCARE ANALYST | X10 3/uL | [facility] | | | ADJUSTED | | | A MEDICAL | | | | | | CENTER | | + + + + + + | HEMOGLOBIN | 9.3 (L) | 12.0 - 16.0 | [facility] | | | | | g/dL | A MEDICAL | | | | | | CENTER | | + + + + + + | RED BLOOD | 3.25 (L) | 4.2 - 5.4 X10 | [facility] | | | CELL COUNT | | 6/uL | A MEDICAL | | | | | | CENTER | | + + + + + + | HEMATOCRIT | 26.8 (L) | 38.0 - 47.0 % | [facility] | | | | | | A MEDICAL | | | | | | CENTER | | + + + + + + | MCV | 82.6 | 82 - 100 fl | [facility] | | | | | | A MEDICAL | | | | | | CENTER | | + + + + + + | MCH | 28.8 | 28.0 - 32.0 pg | [facility] [...] + + + + | RDW | 12.8 | 12 - 15 fL | [facility] | | | | | | A MEDICAL | | | | | | CENTER | | + + + + + + | PLATELET | 211 | 150 - 450 X10 3 | [facility] | | | COUNT | | | A MEDICAL | | | | | | CENTER | | + + + + + + | MPV | 9.8 | 9.0 - 12.0 fL | [facility] | | | | | | A MEDICAL | | | | | | CENTER | | + + + + + + | NEUTROPHIL | 92.1 (H) | 40 - 80 % | [facility] | | | % | | | A MEDICAL | | | | | | CENTER | | + + + + + + | LYMPHOCYTE | 6.6 (L) | 20 - 50 % | [facility] | | | % | | | A MEDICAL | | | | | | CENTER | | + + + + + + | EOS % | 0.1 | 0 - 5 % | [facility] | | | | | | A MEDICAL | | | | | | CENTER | | + + + + + + | BASO % | 0.2 | 0 - 1 % | [facility] | | | | | | A MEDICAL | | | | | | CENTER | | + + + + + + | MONOCYTE % | 1.0 (L) | 2 - 10 % | [facility] | | | | | | A MEDICAL | | | | | | CENTER | | + + + + + + | BANDS % | HEALTHCARE ANALYST | 0 - 7 % | [facility] | | | | | | A MEDICAL | | | | | | CENTER | | + + + + + + | CBC | NPYYY | | [facility] | | | COMMENTS | | | A MEDICAL | | | | | | CENTER | | + + + + + + | NEUTRO % | 85 (H) | 40 - 70 % | [facility] | | | | | | A MEDICAL | | | | | | CENTER | | + + + + + + | LYMPHOCYTE | 3 | 10 - 45 % | [facility] | | | %, MANUAL | | | A MEDICAL | | | | | | CENTER | | + + + + + + | MONOCYTE%, | 5 | 2 - 10 % | [facility] | | | MANUAL | | | A MEDICAL | | | | | | CENTER | | + + + + + + | EOSINOPHIL% | HEALTHCARE ANALYST | 0 - 5 % | [facility] | | | , MANUAL | | | A MEDICAL | | | | | | CENTER | | + + + + + + | BASOPHIL%, | HEALTHCARE ANALYST | 0 - 1 % | [facility] | | | MANUAL | | | A MEDICAL | | | | | | CENTER | | + + + + + + | REACTIVE | HEALTHCARE ANALYST | 0.0 - 4.0 % | [facility] | | | LYMPHS % | | | A MEDICAL | | | | | | CENTER | | + + + + + + | BANDS % | 7 | 0 - 7 % | [facility] | | | | | | A MEDICAL | | | | | | CENTER | | + + + + + + | METAMYELOCY | HEALTHCARE ANALYST | 0 - 0 % | [facility] | | | TISH % | | | A MEDICAL | | | | | | CENTER | | + + + + + + | MYELOCYTES | HEALTHCARE ANALYST | 0 - 0 % | [facility] | | | % | | | A MEDICAL | | | | | | CENTER | | + + + + + + | PROMYELOCYT | HEALTHCARE ANALYST | 0 - 0 % | [facility] | | | ES % | | | A MEDICAL | | | | | | CENTER | | + + + + + + | BLASTS | HEALTHCARE ANALYST | 0 - 0 % | [facility] | | | | | | A MEDICAL | | | | | | CENTER | | + + + + + + | TOTAL CELLS | 100 | % | [facility] | | | COUNTED | | | A MEDICAL | | | | | | CENTER | | + + + + + + | RBC | ... | NORMAL | [facility] | | | MORPHOLOGY | | | A MEDICAL | | | | | | CENTER | | + + + + + + | WBC | FEW VACUOLATED PMN | NORMAL | [facility] | | | MORPHOLOGY | | | A MEDICAL | | | | | | CENTER | | + + + + + + | PLATELET | NORM PLATELET MORPH | NORMAL | [facility] | | | MORPHOLOGY | | | A MEDICAL | | | | | | CENTER | | + + + + + + | NUCLEATED | HEALTHCARE ANALYST | | [facility] | | | RBCS | | | A MEDICAL | | | | | | CENTER | | + + + + + + | GIANT PLT | HEALTHCARE ANALYST | | [facility] | | | | | [...] | + + + + + | [facility] | [address] | [place], [place] | | | MEDICAL CENTER | Streets | [address] | | + + + + + CBC W/DIFF, REFLEX (03/20/2009 7:30 AM PST) + + + + + + | Component | Value | Ref Range | Performed | Pathologist | | | | | At | Signature | + + + + + + | WHITE BLOOD | 19.4 (H) | 4.3 - 11.0 X10 | [facility] | | | CELL COUNT | | 3/ul | A MEDICAL | | | | | | CENTER | | + + + + + + | WBC, | HEALTHCARE ANALYST | X10 3/uL | [facility] | | | ADJUSTED | | | A MEDICAL | | | | | | CENTER | | + + + + + + | HEMOGLOBIN | 11.1 (L) | 12.0 - 16.0 | [facility] | | | | | g/dL | A MEDICAL | | | | | | CENTER | | + + + + + + | RED BLOOD | 3.94 (L) | 4.2 - 5.4 X10 | [facility] | | | CELL COUNT | | 6/uL | A MEDICAL | | | | | | CENTER | | + + + + + + | HEMATOCRIT | 31.9 (L) | 38.0 - 47.0 % | [facility] | | | | | | A MEDICAL | | | | | | CENTER | | + + + + + + | MCV | 80.9 (L) | 82 - 100 fl | [facility] | | | | | | A MEDICAL | | | | | | CENTER | | + + + + + + | MCH | 28.2 | 28.0 - 32.0 pg | [facility] | | | | | | A MEDICAL | | | | | | CENTER | | + + + + + + | MCHC | 34.8 | 32 - 36 g/dL | [facility] [...] + + + + | PLATELET | 230 | 150 - 450 X10 3 | [facility] | | | COUNT | | | A MEDICAL | | | | | | CENTER | | + + + + + + | MPV | 10.1 | 9.0 - 12.0 fL | [facility] | | | | | | A MEDICAL | | | | | | CENTER | | + + + + + + | NEUTROPHIL | 93.1 (H) | 40 - 80 % | [facility] | | | % | | | A MEDICAL | | | | | | CENTER | | + + + + + + | LYMPHOCYTE | 6.5 (L) | 20 - 50 % | [facility] | | | % | | | A MEDICAL | | | | | | CENTER | | + + + + + + | EOS % | 0.1 | 0 - 5 % | [facility] | | | | | | A MEDICAL | | | | | | CENTER | | + + + + + + | BASO % | 0.3 | 0 - 1 % | [facility] | | | | | | A MEDICAL | | | | | | CENTER | | + + + + + + | MONOCYTE % | 0.0 (L) | 2 - 10 % | [facility] | | | | | | A MEDICAL | | | | | | CENTER | | + + + + + + | BANDS % | HEALTHCARE ANALYST | 0 - 7 % | [facility] | | | | | | A MEDICAL | | | | | | CENTER | | + + + + + + | CBC | NPNPNPNP | | [facility] | | | COMMENTS | | | A MEDICAL | | | | | | CENTER | | + + + + + + | NEUTRO % | 86 (H) | 40 - 70 % | [facility] | | | | | | A MEDICAL | | | | | | CENTER | | + + + + + + | LYMPHOCYTE | 9 (L) | 10 - 45 % | [facility] | | | %, MANUAL | | | A MEDICAL | | | | | | CENTER | | + + + + + + | MONOCYTE%, | 2 | 2 - 10 % | [facility] | | | MANUAL | | | A MEDICAL | | | | | | CENTER | | + + + + + + | EOSINOPHIL% | HEALTHCARE ANALYST | 0 - 5 % | [facility] | | | , MANUAL | | | A MEDICAL | | | | | | CENTER | | + + + + + + | BASOPHIL%, | HEALTHCARE ANALYST | 0 - 1 % | [facility] | | | MANUAL | | | A MEDICAL | | | | | | CENTER | | + + + + + + | REACTIVE | HEALTHCARE ANALYST | 0.0 - 4.0 % | [facility] | | | LYMPHS % | | | A MEDICAL | | | | | | CENTER | | + + + + + + | BANDS % | 3 | 0 - 7 % | [facility] | | | | | | A MEDICAL | | | | | | CENTER | | + + + + + + | METAMYELOCY | HEALTHCARE ANALYST | 0 - 0 % | [facility] | | | TISH % | | | A MEDICAL | | | | | | CENTER | | + + + + + + | MYELOCYTES | HEALTHCARE ANALYST | 0 - 0 % | [facility] | | | % | | | A MEDICAL | | | | | | CENTER | | + + + + + + | PROMYELOCYT | HEALTHCARE ANALYST | 0 - 0 % | [facility] | | | ES % | | | A MEDICAL | | | | | | CENTER | | + + + + + + | BLASTS | HEALTHCARE ANALYST | 0 - 0 % | [facility] | | | | | | A MEDICAL | | | | | | CENTER | | + + + + + + | TOTAL CELLS | 100 | % | [facility] | | | COUNTED | | | A MEDICAL | | | | | | CENTER | | + + + + + + | RBC | NORM RBC MORPHOLOGY | NORMAL | [facility] | | | MORPHOLOGY | | | A MEDICAL | | | | | | CENTER | | + + + + + + | WBC | NORM WBC MORPHOLOGY | NORMAL | [facility] | | | MORPHOLOGY | | | A MEDICAL | | | | | | CENTER | | + + + + + + | PLATELET | NORM PLATELET MORPH | NORMAL | [facility] | | | MORPHOLOGY | | | A MEDICAL | | | | | | CENTER | | + + + + + + | NUCLEATED | HEALTHCARE ANALYST | | [facility] | | | RBCS | | | A MEDICAL | | | | | | CENTER | | + + + + + + | GIANT PLT | HEALTHCARE ANALYST | | [facility] | | | | | [...] | + + + + + | [facility] | [address] [place] [address] [place] | | | [facility] | [facility] | [id number] | | + + + + + documented in this encounter Visit Diagnoses Not on filedocumented in this encounter"
--- OUTSIDE RECORDS SUMMARY | ~2019-07-21 | XMS | Encounter Summary ---
Demographics + + + | Address | [address] | | | [place] [address] | + + + | Home Phone | | + + + | Preferred Language | Unknown | + + + | Marital Status | | + + + | Zoroastrian Affiliation | CHR | + + + | Race | White | + + + | Ethnic Group | Unknown | + + + Author + + + | Author | [facility] | + + + | Organization | [facility] | + + + | Address | Unknown | + + + | Phone | Unavailable | + + + Care Team Providers + +------+ + | Care Snuff Container Inspector Name | Role | Phone | + +------+ + PCP | Unavailable | + +------+ + Encounter Details +--------+ + + + + | Date | Type | Department | Care Team | Description | +--------+ + + + + | 03/20/ | Procedure - | [facility] | Latrell Sweeney, | Operative Report | | 2009 | | E The | MD | | | | Transcribed | [place] | | | | | | [address] | | | +--------+ + + + [...] | + +--------+ + + + | OPERATION RECORD | | 03/20/2009 | | Results for this | | | | 7:30 AM | | procedure are in the | | | | PST | | results section. | + +--------+ + + + documented in this encounter Results OPERATION RECORD (03/20/2009 7:30 AM PST) + + | Transcriptions | + + | Latrell Sweeney MD - 03/20/2009 5:52 PM [facility] | | REPORT OF [id number] [place] [id number] | | HIRO SAUCEDO CDATE OF OPERATION: 03/20/2009SURGEON: Latrell Cleary | | Shukri SweeneyPREOPERATIVE DIAGNOSES:1. Intrauterine at term.2. Stage 2 | | arrest.PROCEDURE PERFORMED: A primary low-transverse section.INDICATIONS FOR | | SURGERY: Patient is a 1, para 0, entered with spontaneousonset of contractions | | and spontaneous rupture of membranes, received an epidural at5 cm and progressed rapidly | | to complete with an epidural. The head was allowed deepali contracted on for | | approximately an hour before initiating pushing. She pushedfor 2 hours and 45 minutes | | with no evidence of descent and no continued ability formaternal effort. At that time | | stage II arrest and direct occiput anterior wasdiagnosed and the was called | | urgently.PROCEDURE: She was brought to the operating room, spinal anesthesia was | | induced.She was placed supine with a roll under right hip, displaced the uterus from | | themajor vessels. Pfannenstiel incision was made sharply with scalpel, carried downto | | level of the fascia. The fascia was scored in the midline and extendedlaterally. | | Fascia was superiorly and inferiorly from the rectus muscle.Rectus muscle was | | divided. Peritoneum was grasped and entered sharply. Bladderflap was developed. Low | | transverse uterine incision made sharply with a scalpel,carried laterally with bandage | | scissors. Caption Writer's hand was placed into theuterine cavity, direct occiput anterior | | was noted. Infant was brought out of thepelvis and through the abdominal incision with | | fundal pressure. Oral andnasopharynx were suctioned. The was handed to | | attendants. Cord blood wascollected. Placenta was removed from uterus. Uterus was | | externalized, closed with0 Vicryl suture in a running locked fashion and then imbricated | | with 0 Vicrylsutures, returned to the abdominal cavity. Paracolic gutters were | | irrigated.Needle and sponge counts correct x2. Hemostasis was confirmed. Peritoneum | | wasclosed with 2-0 Vicryl, muscles reapproximated in midline, fascia was closed with | | 0Vicryl suture tied laterally and running continuously. Enma's reapproximated.Skin | | closed with 3-0 Monocryl. Uterus evacuated of clot. The patient wasdelivered to the | | postop anesthesia recovery room without incident.JCF/MedQDD: 03/20/2009 16:28:10DT: | | 03/20/2009 17:46:39Job #: | | [id number] | | | | | | Electronically | | Signed | | | | | | | | | | | | | | CYNTHIA Ly NATALIE [id number] : | | [id number] DATE: 03/20/09 | | | | | |JCF/MedQ | | | | | | /[id number] | | | | | | Electronically Signed | | | | | | | | Latrell Sweeney MD | | | | | | | |HIRO SAUCEDO | |[id number] : 87 | |[id number] | |ADMIT DATE: 03/20/09 | + + documented in this encounter Visit Diagnoses Not on filedocumented in this encounter"
--- OUTSIDE RECORDS SUMMARY | ~2019-07-21 | XMS | Encounter Summary ---
Demographics + + + | Address | [address] | | | [place] [address] | + + + | Home Phone | | + + + | Preferred Language | Unknown | + + + | Marital Status | | + + + | Yarsani Affiliation | CHR | + + + | Race | White | + + + | Ethnic Group | Unknown | + + + Author + + + | Author | [facility] | + + + | Organization | [facility] | + + + | Address | Unknown | + + + | Phone | Unavailable | + + + Care Team Providers + +------+ + | Care Supervisor Home Energy Consultant Name | Role | Phone | + [...] + + | [facility] | [address] | [place], [place] | | | [facility] | Streets | [address] | | + + + + + CBC (HEMOGRAM) ONLY (12/18/2008 8:26 AM PDT) + + + + + + | Component | Value | Ref Range | Performed | Pathologist | | | | | At | Signature | + + + + + + | WHITE BLOOD | 10.5 | 4.3 - 11.0 X10 | [facility] | | | CELL COUNT | | [...] | + + + + + | [facility] | And | [place], [place] | | | MEDICAL CENTER | Street | [address] | | + + + + + [...] + + | [facility] | [address] | [place] | | | MEDICAL CENTER | [address] | [address] | | + + + + + documented in this encounter Visit Diagnoses Not on filedocumented in this encounter"
--- OUTSIDE RECORDS SUMMARY | ~2019-07-21 | XMS | Encounter Summary ---
Demographics + + + | Address | [address] | | | [place] [address] | + + + | Home Phone | | + + + | Preferred Language | Unknown | + + + | Marital Status | | + + + | Mormon Affiliation | CHR | + + + | Race | White | + + + | Ethnic Group | Unknown | + + + Author + + + | Author | [facility] | + + + | Organization | [facility] | + + + | Address | Unknown | + + + | Phone | Unavailable | + + + Care Team Providers + +------+ + | Care Tutor Coordinator Name | Role | Phone | + [...] | [facility] | [address] | [place], [place] | | | [facility] | Streets | [address] | | + + + + + CBC (HEMOGRAM) ONLY (12/18/2008 8:26 AM PDT) + + + + + + | Component | Value | Ref Range | Performed | Pathologist | | | | | At | Signature | + + + + + + | WHITE BLOOD | 10.5 | 4.3 - 11.0 X10 | [facility] | | | CELL COUNT | [...] | + + + + + | [facility] | And | [place], [place] | | | MEDICAL CENTER | [address] | [address] | | + + + + + [...] | | MEDICAL CENTER | [address] | [address] | | + + + + + documented in this encounter Visit Diagnoses Not on filedocumented in this encounter"
--- OUTSIDE RECORDS SUMMARY | ~2019-07-21 | XMS | Clinical Summary ---
Demographics + + + | Address | [address] | | | [place] [address] | + + + | Home Phone | | + + + | Preferred Language | Unknown | + + + | Marital Status | | + + + | Evangelical Affiliation | CHR | + + + | Race | White | + + + | Ethnic Group | Unknown | + + + Author + + + | Organization | Unknown | + + + | Address | Unknown | + + + | Phone | Unavailable | + + + Care Team Providers + +------+ + | Care Impregnator Electrolytic Capacitors Name | Role | Phone | + +------+ + PCP | Unavailable | + +------+ + Source Comments ERI[place] is fully live on both [facility] Ambulatory and [facility] InPatient.[facility] Allergies Not on File Medications Not on file Active Problems Not on file Social History + +-------+ +--------+------+ | Tobacco [...] recent travel history available. | + + Last Filed Vital Signs Not on file Plan of Treatment + + + + + | Health Maintenance | Due Date | Last Done | Comments | + + + + + | Influenza (Flu) | | | | | vaccination (#1) | 9 | | | + + + + + | Pneumococcal | Aged Out | | No longer eligible | | vaccination | | | based on patient's | | | | | age to complete this | | | | | topic | + + + + + Results Not on filefrom Last 3 Months"
--- OUTSIDE RECORDS SUMMARY | ~2019-07-21 | XMS | Encounter Summary ---
Demographics + + + | Address | [address] | | | [place] [address] | + + + | Home Phone | | + + + | Preferred Language | Unknown | + + + | Marital Status | | + + + | Shinto Affiliation | CHR | + + + | Race | White | + + + | Ethnic Group | Unknown | + + + Author + + + | Author | [facility] | + + + | Organization | [facility] | + + + | Address | Unknown | + + + | Phone | Unavailable | + + + Care Team Providers + +------+ + | Care Client Portfolio Manager Name | Role | Phone | + +------+ + PCP | Unavailable | + +------+ + Encounter Details +--------+ + + + + | Date | Type | Department | Care Team | Description | +--------+ + + + + | 02/20/ | Results | [facility] | Isaiah Fuller, | | | 2009 | Only | Department | [address] | | | | | [address] [place] | | | | | | [address] | | | | | | [phone] | | | | | | | [...] | + +--------+ + + + | PERIPHERAL DOPPLER | Routin | 02/20/2009 | | Results for this | | UNI. [id number] | e | 10:14 PM | | procedure are in the | | | | PST | | results section. | + +--------+ + + + documented in this encounter Results PERIPHERAL DOPPLER UNI. [id number] (02/20/2009 10:14 PM PST) + + | Specimen | + + | | + + + + + | Narrative | Performed At | + + + | RIGHT LEG VEIN ULTRASOUND INDICATION: Swelling in the leg. The | [facility] | | patient is . FINDINGS: Ultrasound examination was performed | DEPARTMENT OF | | from the common femoral vein to the distal tibial veins. Flow, | RADIOLOGY | | augmentation and compressibility were demonstrated throughout. No | | | intraluminal density is seen. There is flow present in the | | | saphenous vein. CONCLUSIONS: No evidence of deep venous thrombosis | | | is noted. [id number] | | + + + + + | Procedure Note | + + | Interface, Radiology Results - 10/05/2014 2:10 PM PDT RIGHT LEG VEIN ULTRASOUND | | INDICATION: Swelling in the leg. The patient is . | | FINDINGS: Ultrasound examination was performed from the common | | femoral vein to the distal tibial veins. Flow, augmentation and | | compressibility were demonstrated throughout. No intraluminal density | | is seen. There is flow present in the saphenous vein. | | CONCLUSIONS: No evidence of deep venous thrombosis is noted. | | [id number] | + + + +---------+ + + | Performing | Address | City/State/Zipcode | Phone Number | | Organization | | | | + +---------+ + + | [facility] DEPARTMENT OF | | | | | RADIOLOGY | | | | + +---------+ + + documented in this encounter Visit Diagnoses Not on filedocumented in this encounter"
--- OUTSIDE RECORDS SUMMARY | ~2019-07-21 | XMS | Clinical Summary ---
Demographics + + + | Address | [address] | | | [place] [address] | + + + | Home Phone | | + + + | Preferred Language | Unknown | + + + | Marital Status | | + + + | Worship Affiliation | CHR | + + + | Race | White | + + + | Ethnic Group | Unknown | + + + Author + + + | Organization | Unknown | + + + | Address | Unknown | + + + | Phone | Unavailable | + + + Care Team Providers + +------+ + | Care Soil Sort Worker Name | Role | Phone | + +------+ + PCP | Unavailable | + +------+ + Source Comments ERIKA is fully live on both [facility] Ambulatory and [facility] InPatient.[facility] Allergies Not on File Medications Not on [...]
--- OUTSIDE RECORDS SUMMARY | ~2019-07-21 | XMS | Encounter Summary ---
Demographics + + + | Address | [address] | | | [place] [address] | + + + | Home Phone | | + + + | Preferred Language | Unknown | + + + | Marital Status | | + + + | Baptist Affiliation | CHR | + + + | Race | White | + + + | Ethnic Group | Unknown | + + + Author + + + | Author | [facility] | + + + | Organization | [facility] | + + + | Address | Unknown | + + + | Phone | Unavailable | + + + Care Team Providers + +------+ + | Care Delivery Man Name | Role | Phone | + [...] [place] | | | | | | [address] | | | | | | [phone] | | | | | | | [...] | Results for this | | CHEST [id number] | e | 12:17 AM | | procedure are in the | | | | PDT | | results section. | + +--------+ + + + documented in this encounter Results ABDOMEN 2 VIEW PA CHEST [id number] (12/06/2005 12:17 AM PDT) + + | [...]
--- OUTSIDE RECORDS SUMMARY | ~2019-07-21 | XMS | Encounter Summary ---
Demographics + + + | Address | [address] | | | [place] [address] | + + + | Home Phone | | + + + | Preferred Language | Unknown | + + + | Marital Status | | + + + | Yazidi Affiliation | CHR | + + + | Race | White | + + + | Ethnic Group | Unknown | + + + Author + + + | Author | [facility] | + + + | Organization | [facility] | + + + | Address | Unknown | + + + | Phone | Unavailable | + + + Care Team Providers + +------+ + | Care Boy'S Adviser Name | Role | Phone | + +------+ + PCP | Unavailable | + +------+ + Encounter Details +--------+ + + + + | Date | Type | Department | Care Team | Description | +--------+ + + + + | 03/09/ | Results | [facility] | Other, Faculty | | | 2009 | Only | [address] | [phone] | | | | | [place] | | | | | | [address] | | | +--------+ + + + [...] + + + | BANDS % | ASSISTANCE SPECIALIST | 0 - 7 % | [facility] [...] | + + + + + | [facility] | [address] | [place], [place] | | | MEDICAL CENTER | Streets | [address] | | + + + + + UREA NITROGEN, PLASMA (03/09/2009 10:49 PM PST) + + + + + + | Component | Value | Ref Range | Performed | Pathologist | | | | | At | Signature | + + + + + + | BUN, PLASMA | 8 | 8 - 30 MG/DL | [facility] | | | (LAB) | | | A MEDICAL | | | | | | CENTER | | + + + + + + | CREATININE | 0.54 (L) | 0.6 - 1.1 MG/DL | [facility] | | | PLASMA | | | [...] | + + + + + | [facility] | And | [place] | | | [facility] | [facility] | [address] | | + + + + + documented in this encounter Visit Diagnoses Not on filedocumented in this encounter"
--- OUTSIDE RECORDS SUMMARY | ~2019-07-21 | XMS | Encounter Summary ---
Demographics + + + | Address | [address] | | | [place] [address] | + + + | Home Phone | | + + + | Preferred Language | Unknown | + + + | Marital Status | | + + + | Tenriism Affiliation | CHR | + + + | Race | White | + + + | Ethnic Group | Unknown | + + + Author + + + | Author | [facility] | + + + | Organization | [facility] | + + + | Address | Unknown | + + + | Phone | Unavailable | + + + Care Team Providers + +------+ + | Care Door Trimmer Name | Role | Phone | + [...] [place] | | | | | | [address] | | | +--------+ + + + [...] Latrell Sweeney MD - 03/20/2009 5:52 PM [facility] | | REPORT OF [id number] [place] [address] | | HIRO SAUCEDO CDATE OF OPERATION: [...] scalpel,carried laterally with bandage | | scissors. Lime Kiln Tender's hand was placed into theuterine cavity, direct [...] | | 03/20/2009 17:46:39Job #: | | [id number] | | | | | | Electronically | | Signed | | | | | | | | | | | | | | CYNTHIA Ly NATALIE [id number] : | | [id number] DATE: 03/20/09 | | | | | |JCF/MedQ | | | | | | /[id number] | | | | | | Electronically Signed | | | | | | | | Latrell Sweeney MD | | | | | | | |HIRO SAUCEDO | |[id number] : 87 | |[id number] | |ADMIT DATE: 03/20/09 | + + documented in this encounter Visit Diagnoses Not on filedocumented in this encounter"
--- OUTSIDE RECORDS SUMMARY | ~2019-07-21 | XMS | Encounter Summary ---
Demographics + + + | Address | [address] | | | [place] [address] | + + + | Home Phone | | + + + | Preferred Language | Unknown | + + + | Marital Status | | + + + | Temple Affiliation | CHR | + + + | Race | White | + + + | Ethnic Group | Unknown | + + + Author + + + | Author | [facility] | + + + | Organization | [facility] | + + + | Address | Unknown | + + + | Phone | Unavailable | + + + Care Team Providers + +------+ + | Care Clerical Proofreader Name | Role | Phone | + [...] + + | [facility] | [address] [place] | [place] | | | [facility] | [place] | [address] | | + + + + + documented in this encounter Visit Diagnoses Not on filedocumented in this encounter"
--- OUTSIDE RECORDS SUMMARY | ~2019-07-21 | XMS | Encounter Summary ---
Demographics + + + | Address | [address] | | | [place] [address] | + + + | Home Phone | | + + + | Preferred Language | Unknown | + + + | Marital Status | | + + + | Jainism Affiliation | CHR | + + + | Race | White | + + + | Ethnic Group | Unknown | + + + Author + + + | Author | [facility] | + + + | Organization | [facility] | + + + | Address | Unknown | + + + | Phone | Unavailable | + + + Care Team Providers + +------+ + | Care Gynecologist Name | Role | Phone | + [...] + + | [facility] | [address] [place] | [place] | | | [facility] | [place] | [address] | | + + + + + documented in this encounter Visit Diagnoses Not on filedocumented in this encounter"
--- OUTSIDE RECORDS SUMMARY | ~2019-07-21 | XMS | Encounter Summary ---
Demographics + + + | Address | [address] | | | [place] [address] | + + + | Home Phone | | + + + | Preferred Language | Unknown | + + + | Marital Status | | + + + | Mu-Ism Affiliation | CHR | + + + | Race | White | + + + | Ethnic Group | Unknown | + + + Author + + + | Author | [facility] | + + + | Organization | [facility] | + + + | Address | Unknown | + + + | Phone | Unavailable | + + + Care Team Providers + +------+ + | Care Director Auto Name | Role | Phone | + [...] | | | | | [address], | [place], [place] | | | | | [place] [address] | [address] | | | | | [phone] | [phone] | | | | | | | [...] | + + + + + | [facility] | And | [place] | | | [facility] [place] | [facility] | [address] | | + + + + + documented in this encounter Visit Diagnoses Not on filedocumented in this encounter"
--- OUTSIDE RECORDS SUMMARY | ~2019-07-21 | XMS | Encounter Summary ---
Demographics + + + | Address | [address] | | | [place] [address] | + + + | Home Phone | | + + + | Preferred Language | Unknown | + + + | Marital Status | | + + + | Restoration Affiliation | CHR | + + + | Race | White | + + + | Ethnic Group | Unknown | + + + Author + + + | Author | [facility] | + + + | Organization | [facility] | + + + | Address | Unknown | + + + | Phone | Unavailable | + + + Care Team Providers + +------+ + | Care Education Director Name | Role | Phone | + [...] [place] | | | | | | [address] | | | | | | [phone] | | | | | | | [...] | Results for this | | CHEST [id number] | e | 12:17 AM | | procedure are in the | | | | PDT | | results section. | + +--------+ + + + documented in this encounter Results ABDOMEN 2 VIEW PA CHEST [id number] (12/06/2005 12:17 AM PDT) + + | [...]
--- OUTSIDE RECORDS SUMMARY | ~2019-07-21 | XMS | Encounter Summary ---
Demographics + + + | Address | [address] | | | [place] [address] | + + + | Home Phone | | + + + | Preferred Language | Unknown | + + + | Marital Status | | + + + | Confucianism Affiliation | CHR | + + + | Race | White | + + + | Ethnic Group | Unknown | + + + Author + + + | Author | [facility] | + + + | Organization | [facility] | + + + | Address | Unknown | + + + | Phone | Unavailable | + + + Care Team Providers + +------+ + | Care Continuous Yarn Dyeing Machine Operator Name | Role | Phone | [...] +-------+ + + + | COUMADIN | MITER CUTTER | | [facility] | | | CURRENT | | | A MEDICAL | | | DOSE | | | CENTER | | + +-------+ + + + | LAST DOSE | MITER CUTTER | | [facility] | | | DATE | | | A MEDICAL | | | | | | CENTER | | + +-------+ + + + | LAST DOSE | MITER CUTTER | | [facility] | | | TIME [...] + + + + | [facility] | [place] | [place] | | | MEDICAL [place] | [facility] | [address] | | + + + + + documented in this encounter Visit Diagnoses Not on filedocumented in this encounter"
--- OUTSIDE RECORDS SUMMARY | ~2019-07-21 | XMS | Encounter Summary ---
Demographics + + + | Address | [address] | | | [place] [address] | + + + | Home Phone | | + + + | Preferred Language | Unknown | + + + | Marital Status | | + + + | Quaker Affiliation | CHR | + + + [...] Team Providers + +------+ + | Care Rod Buster Name | Role | Phone | + +------+ + PCP | Unavailable | + +------+ + Encounter Details +--------+ + + + + | Date | Type | Department | Care Team | Description | +--------+ + + + + | 05/03/ | Results | [facility] | Other, Faculty | | | 2009 | Only | [address] | [phone] | | | | | [place] | | | | | | [address] | | | +--------+ + + + [...] DIAGNOSTICS | | | | | | -[place] | | | | REFERENCE: | | | | | | | | | | | | | | | | | | NOT DETECTED | | | | + + + + + + | GONOCOCCUS | NOT DETECTEDComment: | | [facility] | | | PROBE | | | DIAGNOSTICS | | | | | | -[place] | | | | REFERENCE: | | [...] + + + | [facility] | [address] | [place] [address] | [phone] | | DI[facility]ST[facility] | | | | + + + + + | [facility] | | | | | [facility] | | | | + + + + + documented in this encounter Visit Diagnoses Not on filedocumented in this encounter"
--- OUTSIDE RECORDS SUMMARY | ~2019-07-21 | XMS | Encounter Summary ---
Demographics + + + | Address | [address] | | | [place] [address] | + + + | Home Phone | | + + + | Preferred Language | Unknown | + + + | Marital Status | | + + + | Zoroastrian Affiliation | CHR | + + + | Race | White | + + + | Ethnic Group | Unknown | + + + Author + + + | Author | [facility] | + + + | Organization | [facility] | + + + | Address | Unknown | + + + | Phone | Unavailable | + + + Care Team Providers + +------+ + | Care Applications Intern Name | Role | Phone | + +------+ + PCP | Unavailable | + +------+ + Encounter Details +--------+ + + + + | Date | Type | Department | Care Team | Description | +--------+ + + + + | 03/09/ | Results | [facility] | Other, Faculty | | | 2009 | Only | [address] | [phone] | | | | | [place] | | | | | | [address] | | | +--------+ + + + [...] + + + | BANDS % | CLOTH SHRINKING TESTER | 0 - 7 % | [facility] [...] | + + + + + | [facility] | [address] | [place], [place] | | | MEDICAL CENTER | Streets | [address] | | + + + + + UREA NITROGEN, PLASMA (03/09/2009 10:49 PM PST) + + + + + + | Component | Value | Ref Range | Performed | Pathologist | | | | | At | Signature | + + + + + + | BUN, PLASMA | 8 | 8 - 30 MG/DL | [facility] | | | (LAB) | | | A MEDICAL | | | | | | CENTER | | + + + + + + | CREATININE | 0.54 (L) | 0.6 - 1.1 MG/DL | [facility] | | | PLASMA | | | [...] | + + + + + | [facility] | And | [place] | | | [facility] | [facility] | [address] | | + + + + + documented in this encounter Visit Diagnoses Not on filedocumented in this encounter"
--- OUTSIDE RECORDS SUMMARY | ~2019-07-21 | XMS | Encounter Summary ---
Demographics + + + | Address | [address] | | | [place] [address] | + + + | Home Phone [...] Providers + +------+ + | Care Farm Product Purchaser Name | Role | Phone | + [...] | | | | | [address], | [place], [place] | | | | | [place] [address] | [address] | | | | | [phone] | [phone] | | | | | | | [...] | + + + + + | [facility] | And | [place] | | | [facility] [place] | [facility] | [address] | | + + + + + documented in this encounter Visit Diagnoses Not on filedocumented in this encounter"
--- OUTSIDE RECORDS SUMMARY | ~2019-07-21 | XMS | Encounter Summary ---
Demographics + + + | Address | [address] | | | [place] [address] | + + + | Home Phone | | + + + | Preferred Language | Unknown | + + + | Marital Status | | + + + | Jewish Affiliation | CHR | + + + | Race | White | + + + | Ethnic Group | Unknown | + + + Author + + + | Author | [facility] | + + + | Organization | [facility] | + + + | Address | Unknown | + + + | Phone | Unavailable | + + + Care Team Providers + +------+ + | Care Continuous Conveyor Screen Drier Name | Role | Phone | + +------+ + PCP | Unavailable | + +------+ + Encounter Details +--------+ + + + + | Date | Type | Department | Care Team | Description | +--------+ + + + + | 06/17/ | Results | [facility] | Danette Finch, | | | 2009 | Only | Medical Clinic | NOTCHED BLADE LOADER [address] | | | | | Internal Medicine | Blvd [place], [place] | | | | | [address] | [address] | | | | | [place], [place] | [phone] | | | | | [address] | | | | | | [phone] | | | +--------+ + + + [...] + + + | [facility] | And | [place] | | | [facility] | Streets | [address] | | + + + + + [...] | [facility] | [address] | [place] | | | MEDICAL CENTER | Streets | [address] | | + + + + + documented in this encounter Visit Diagnoses Not on filedocumented in this encounter"
--- OUTSIDE RECORDS SUMMARY | ~2019-07-21 | XMS | Encounter Summary ---
Demographics + + + | Address | [address] | | | [place] [address] | + + + | Home Phone | | + + + | Preferred Language | Unknown | + + + | Marital Status | | + + + | Methodist Affiliation | CHR | + + + [...] Team Providers + +------+ + | Care Java Grails Developer Name | Role | Phone | + +------+ + PCP | Unavailable | + +------+ + Encounter Details +--------+ + + + + | Date | Type | Department | Care Team | Description | +--------+ + + + + | 08/19/ | Results | [facility] | Other, Faculty | | | 2008 | Only | [address] | [phone] | | | | | [place] | | | | | | [address] | | | +--------+ + + + [...] DIAGNOSTICS | | | | | | -[place] | | | | REFERENCE: | | | | | | | | | | | | | | | | | | NOT DETECTED | | | | + + + + + + | GONOCOCCUS | NOT DETECTEDComment: | | [facility] | | | PROBE | | | DIAGNOSTICS | | | | | | -[place] | | | | REFERENCE: | | [...] + + + | [facility] | [address] [facility] | [place] [address] | [phone] | | [facility] | | | | + + + + + | [facility] | | | | | [facility] | | | | + + + + + documented in this encounter Visit Diagnoses Not on filedocumented in this encounter"
--- OUTSIDE RECORDS SUMMARY | ~2019-07-21 | XMS | Encounter Summary ---
Demographics + + + | Address | [address] | | | [place] [address] | + + + | Home Phone | | + + + | Preferred Language | Unknown | + + + | Marital Status | | + + + | Yarsani Affiliation | CHR | + + + | Race | White | + + + | Ethnic Group | Unknown | + + + Author + + + | Author | [facility] | + + + | Organization | [facility] | + + + | Address | Unknown | + + + | Phone | Unavailable | + + + Care Team Providers + +------+ + | Care Solution Make Up Operator Name | Role | Phone | [...] + + + | BANDS % | MUSEUM TOUR GUIDE | 0 - 7 % | [facility] [place] | | | MEDICAL CENTER | [place] | [address] | | + + + + + [...] + + | [facility] | [address] [place] | [place] | | | MEDICAL CENTER | Streets | [address] | | + + + + + documented in this encounter Visit Diagnoses Not on filedocumented in this encounter"
--- OUTSIDE RECORDS SUMMARY | ~2019-07-21 | XMS | Encounter Summary ---
Demographics + + + | Address | [address] | | | [place] [address] | + + + | Home Phone | | + + + | Preferred Language | Unknown | + + + | Marital Status | | + + + | Synagogue Affiliation | CHR | + + + [...] Team Providers + +------+ + | Care Silk Screen Printer Name | Role | Phone | + +------+ + PCP | Unavailable | + +------+ + Encounter Details +--------+ + + + + | Date | Type | Department | Care Team | Description | +--------+ + + + + | 03/20/ | Results | [facility] | Other, Faculty | | | 2009 | Only | [address] | [phone] | | | | | [place] | | | | | | [address] | | | +--------+ + + + [...] + + + + | WBC, | SUPERVISOR HOME ENERGY CONSULTANT | X10 3/uL | [facility] | | [...] + + + | BANDS % | SUPERVISOR HOME ENERGY CONSULTANT | 0 - 7 % | [facility] [...] + + + + | EOSINOPHIL% | SUPERVISOR HOME ENERGY CONSULTANT | 0 - 5 % | [facility] | | | , MANUAL | | | A MEDICAL | | | | | | CENTER | | + + + + + + | BASOPHIL%, | SUPERVISOR HOME ENERGY CONSULTANT | 0 - 1 % | [facility] | | | MANUAL | | | A MEDICAL | | | | | | CENTER | | + + + + + + | REACTIVE | SUPERVISOR HOME ENERGY CONSULTANT | 0.0 - 4.0 % | [facility] [...] + + + + | METAMYELOCY | SUPERVISOR HOME ENERGY CONSULTANT | 0 - 0 % | [facility] | | | TISH % | | | A MEDICAL | | | | | | CENTER | | + + + + + + | MYELOCYTES | SUPERVISOR HOME ENERGY CONSULTANT | 0 - 0 % | [facility] | | | % | | | A MEDICAL | | | | | | CENTER | | + + + + + + | PROMYELOCYT | SUPERVISOR HOME ENERGY CONSULTANT | 0 - 0 % | [facility] | | | ES % | | | A MEDICAL | | | | | | CENTER | | + + + + + + | BLASTS | SUPERVISOR HOME ENERGY CONSULTANT | 0 - 0 % | [facility] [...] + + + + | NUCLEATED | SUPERVISOR HOME ENERGY CONSULTANT | | [facility] | | | RBCS | | | A MEDICAL | | | | | | CENTER | | + + + + + + | GIANT PLT | SUPERVISOR HOME ENERGY CONSULTANT | | [facility] | | | | [...] + + + + | [facility] | [address] [place] | [place], [place] | | | MEDICAL CENTER | Streets | [address] | | + + + + + CBC W/DIFF, REFLEX (03/20/2009 7:30 AM PST) + + + + + + | Component | Value | Ref Range | Performed | Pathologist | | | | | At | Signature | + + + + + + | WHITE BLOOD | 19.4 (H) | 4.3 - 11.0 X10 | [facility] | | | CELL COUNT | | 3/ul | A MEDICAL | | | | | | CENTER | | + + + + + + | WBC, | SUPERVISOR HOME ENERGY CONSULTANT | X10 3/uL | [facility] | | [...] + + + | BANDS % | SUPERVISOR HOME ENERGY CONSULTANT | 0 - 7 % | [facility] [...] + + + + | EOSINOPHIL% | SUPERVISOR HOME ENERGY CONSULTANT | 0 - 5 % | [facility] | | | , MANUAL | | | A MEDICAL | | | | | | CENTER | | + + + + + + | BASOPHIL%, | SUPERVISOR HOME ENERGY CONSULTANT | 0 - 1 % | [facility] | | | MANUAL | | | A MEDICAL | | | | | | CENTER | | + + + + + + | REACTIVE | SUPERVISOR HOME ENERGY CONSULTANT | 0.0 - 4.0 % | [facility] [...] + + + + | METAMYELOCY | SUPERVISOR HOME ENERGY CONSULTANT | 0 - 0 % | [facility] | | | TISH % | | | A MEDICAL | | | | | | CENTER | | + + + + + + | MYELOCYTES | SUPERVISOR HOME ENERGY CONSULTANT | 0 - 0 % | [facility] | | | % | | | A MEDICAL | | | | | | CENTER | | + + + + + + | PROMYELOCYT | SUPERVISOR HOME ENERGY CONSULTANT | 0 - 0 % | [facility] | | | ES % | | | A MEDICAL | | | | | | CENTER | | + + + + + + | BLASTS | SUPERVISOR HOME ENERGY CONSULTANT | 0 - 0 % | [facility] [...] + + + + | NUCLEATED | SUPERVISOR HOME ENERGY CONSULTANT | | [facility] | | | RBCS | | | A MEDICAL | | | | | | CENTER | | + + + + + + | GIANT PLT | SUPERVISOR HOME ENERGY CONSULTANT | | [facility] | | | | [...] + + + + | [facility] | [place] | [place] | | | [facility] | [facility] | [address] | | + + + + + documented in this encounter Visit Diagnoses Not on filedocumented in this encounter"
--- OUTSIDE RECORDS SUMMARY | ~2019-07-21 | XMS | Encounter Summary ---
Demographics + + + | Address | [address] | | | [place] [address] | + + + | Home Phone | | + + + | Preferred Language | Unknown | + + + | Marital Status | | + + + | Voodoo Affiliation | CHR | + + + [...] Team Providers + +------+ + | Care Assistant Press Operator Offset Name | Role | Phone | + +------+ + PCP | Unavailable | + +------+ + Encounter Details +--------+ + + + + | Date | Type | Department | Care Team | Description | +--------+ + + + + | 06/17/ | Results | [facility] | Danette Finch, | | | 2009 | Only | Medical Clinic | CHINESE INSTRUCTOR [address] | | | | | Internal Medicine | Blvd [place], [place] | | | | | [address] | [address] | | | | | [place], [place] | [phone] | | | | | [address] | | | | | | [phone] | | | +--------+ + + + [...] And | [place] | | | [facility] | Streets | [address] | | + + + + + [...] | | MEDICAL CENTER | Streets | [address] | | + + + + + documented in this encounter Visit Diagnoses Not on filedocumented in this encounter"
--- OUTSIDE RECORDS SUMMARY | ~2019-07-21 | XMS | Encounter Summary ---
Demographics + + + | Address | [address] | | | [place] [address] | + + + | Home Phone | | + + + | Preferred Language | Unknown | + + + | Marital Status | | + + + | Episcopal Affiliation | CHR | + + + | Race | White | + + + | Ethnic Group | Unknown | + + + Author + + + | Author | [facility] | + + + | Organization | [facility] | + + + | Address | Unknown | + + + | Phone | Unavailable | + + + Care Team Providers + +------+ + | Care Ortho Rn Name | Role | Phone | + [...] + + + | BANDS % | RESIDENTIAL SALES CONSULTANT | 0 - 7 % | [...] | | MEDICAL CENTER | [place] | [address] | | + + + + + [...] + + | [facility] | [address] [place] | [place] | | | MEDICAL CENTER | Streets | [address] | | + + + + + documented in this encounter Visit Diagnoses Not on filedocumented in this encounter"
--- OUTSIDE RECORDS SUMMARY | ~2019-07-21 | XMS | Encounter Summary ---
Demographics + + + | Address | [address] | | | [place] [address] | + + + | Home Phone [...] + + | Author | [facility] | + + + | Organization | [facility] | + + + | Address | Unknown | + + + | Phone | Unavailable | + + + Care Team Providers + +------+ + | Care Miller Head Name | Role | Phone | + +------+ + PCP | Unavailable | + +------+ + Encounter Details +--------+ + + + + | Date | Type | Department | Care Team | Description | +--------+ + + + + | 05/03/ | Results | [facility] | Other, Faculty | | | 2009 | Only | [address] | [phone] | | | | | [place] | | | | | | [address] | | | +--------+ + + + [...] DIAGNOSTICS | | | | | | -[place] | | | | REFERENCE: | | | | | | | | | | | | | | | | | | NOT DETECTED | | | | + + + + + + | GONOCOCCUS | NOT DETECTEDComment: | | [facility] | | | PROBE | | | DIAGNOSTICS | | | | | | -[place] | | | | REFERENCE: | | [...] + + + | [facility] | [address] [facility] | [place] [address] | [phone] | | DI[facility]ST[facility] | | | | + + + + + | [facility] | | | | | [facility] | | | | + + + + + documented in this encounter Visit Diagnoses Not on filedocumented in this encounter"
--- OUTSIDE RECORDS SUMMARY | ~2019-07-21 | XMS | Encounter Summary ---
Demographics + + + | Address | [address] | | | [place] [address] | + + + | Home Phone [...] Team Providers + +------+ + | Care Technology Teacher Name | Role | Phone | + +------+ + PCP | Unavailable | + +------+ + Encounter Details +--------+ + + + + | Date | Type | Department | Care Team | Description | +--------+ + + + + | 08/19/ | Results | [facility] | Other, Faculty | | | 2008 | Only | [address] | [phone] | | | | | [place] | | | | | | [address] | | | +--------+ + + + [...] DIAGNOSTICS | | | | | | -[place] | | | | REFERENCE: | | | | | | | | | | | | | | | | | | NOT DETECTED | | | | + + + + + + | GONOCOCCUS | NOT DETECTEDComment: | | [facility] | | | PROBE | | | DIAGNOSTICS | | | | | | -[place] | | | | REFERENCE: | | [...] + + + | [facility] | [address] [facility] | [place] [address] | [phone] | | DIAGNOST[facility] | | | | + + + + + | [facility] | | | | | [facility] | | | | + + + + + documented in this encounter Visit Diagnoses Not on filedocumented in this encounter"
--- OUTSIDE RECORDS SUMMARY | ~2019-07-21 | XMS | Encounter Summary ---
Demographics + + + | Address | [address] | | | [place] [address] | + + + | Home Phone | | + + + | Preferred Language | Unknown | + + + | Marital Status | | + + + | Christianity Affiliation | CHR | + + + | Race | White | + + + | Ethnic Group | Unknown | + + + Author + + + | Author | [facility] | + + + | Organization | [facility] | + + + | Address | Unknown | + + + | Phone | Unavailable | + + + Care Team Providers + +------+ + | Care Tents Assembler Name | Role | Phone | + [...] [place] | | | | | | [address] | | | | | | [phone] | | | | | | | [...] | Results for this | | UNI. [id number] | e | 10:14 PM | | procedure are in the | | | | PST | | results section. | + +--------+ + + + documented in this encounter Results PERIPHERAL DOPPLER UNI. [id number] (02/20/2009 10:14 PM PST) + + | [...] venous thrombosis | | | is noted. [id number] | | + + + + + [...] deep venous thrombosis is noted. | | [id number] | + + + +---------+ + + [...]
[~2019-07-21 11:27] MED LIST changes: +AZO URINARY TR1 EAC1 PO; +BACTRIM DS TAB1 EACH PO; +CEFPODOXIME PR200 MG PO; +EPIN0.3P IM; +HYDROXYZINE HCL10 MG PO; +IRON325 M1 PO; +ONDANSETRON ODT4 MG PO; +SETLAKIN 0.151 EACH PO; +ZYRTEC10 MG PO
--- OUTSIDE RECORDS SUMMARY | 2019-07-21 11:30 | XMS ---
PreManage Notification: HIRO RODRIGUEZ Security Credit Card Clerk Events No recent Security Events currently on file CRITERIA MET - [facility] Guidelines CARE PROVIDERS MEDHAT KAHN Physician Cage Tender Current PHONE: [phone] Guidelines [facility] Date: 03/07/2019 Care Coordination: Receiving mental health services with [facility].\T\nbsp; Please contact [facility] for mental health concerns.\T\nbsp; Tristin/Santi Serrano: [phone]\T\ nbsp; Bi: [phone].\T\nbsp; E.Cora. VISIT COUNT (12 MO.) 2 [facility] TOTAL 2 NOTE: Visits indicate total known visits. ED/UCC VISIT TRACKING (12 MO.) 07/21/2019 11:27 [facility] [place] TYPE: Emergency COMPLAINT: - ABDOMINAL PAIN 03/04/2019 09:24 [facility] [place] TYPE: Emergency COMPLAINT: - URINE PROBLEM, VOMITING INPATIENT VISIT TRACKING (12 MO.) 03/04/2019 15:[address] [facility] [place] TYPE: Medical Surgical COMPLAINT: - PYELONEPHRITIS DIAGNOSES: - Allergy status to other drugs, medicaments and biological sub - Endometriosis, unspecified - Other retirement (current) drug therapy - Allergy status to other drugs, medicaments and biological sub - Endometriosis, unspecified - Acute pyelonephritis - [facility] (current) use of hormonal contraceptives - Other manager terminal (current) drug therapy - Hypokalemia - Hypokalemia - terminal supervisor (current) use of hormonal contraceptives [email or web address]
[2019-07-21] MEDS ORDERED: ONDANSETRON ODT8 MG PO (13:15)
== END 2019-07-21 13:26 | disposition home or self-care (01) ==
LOC: ED 11:27
DX: K52.9 Noninfective gastroenteritis and colitis, unspecified (principal); Z87.891 Personal history of nicotine dependence; Z91.018 Allergy to other foods; Z91.012 Allergy to eggs; Z79.899 Other long term (current) drug therapy
CPT/HCPCS: 80053; 81001; 83690; 84703; 85025; 96361; 96374; 96375; 99284-25; J1885; J2405; J7030

== ENCOUNTER 2019-08-28 08:45 | Day surgery (SDC) | payer BC, OTHER ==
[~2019-08-28] VITALS: Ht 154.9 cm; Wt 66.7 kg
[~2019-08-28 08:45] MED LIST changes: +ONDANSETRON ODT8 MG PO
[2019-08-28] MEDS ORDERED: IRON18 MG PO (09:16)
[2019-08-28] MEDS ORDERED: TYLENOL325 MG PO (09:17)
[2019-08-28] MEDS ORDERED: ADVIL LIQUI-GE200 MG PO (09:17)
--- NOTE | 2019-08-28 11:28 | NUR ---
08/28/19 1128 Ch[address] Ivory 1121-PATIENT ARRIVED TO PACU ON 6L MASK NONAROUSABLE. RR EVEN. PATIENT REACTIVE TO VERBAL STIMULI SLIGHTLY OPENS EYES UNABLE TO FOLLOW COMMANDS. VERY DROWSY. IVF INFUSING. BANDAIDS TO ABDOMEN SCANT AMT OF SHADOWING TO RLQ. ZOHAIB PAD IN PLACE. AND BENJAMIN CATHETER DRAINING. SR.
--- NOTE | 2019-08-28 13:47 | NUR ---
PATIENT REPORTED NEEDED TO GO TO THE BATHROOM AGAIN, PROVIDED PATIENT WITH ASSISTANCE TO BATHROOM. PATIENT APPEARED UNSTEADY ON FEET NEEDING SOME BALANCE FROM WALL. PATENT VOIDED 50 ML OF FLOURESCENT YELLOW URINE, PATIENT THEN REPORTED UNABLE TO AMBULATE BACK TO ROOM, COMPLAINTS OF DIZZINESS. PROVIDED WHEELCHAIR RIDE AND 2 PERSON ASSIST BACK TO BED, PATIENT WOULD APPEAR TO DROP WEIGHT NEEDNG TOTAL SUPPORT. PROVIDED WARM BLANKETS, AND POSITIONED TO SIDE WITH PILLOW TO SUPPORT BACK. IV FLUIDS DRIPPING. CALL LIGHT WITHIN REACH. VERBALLY REPORTED TO BOBY CALLE.
[2019-08-28] MEDS ORDERED: NORCO 5-325 TA1 EACH PO (14:27)
[2019-08-28] MEDS ORDERED: MOTRIN IB200 MG PO (14:27)
--- NOTE | 2019-08-28 15:56 | NUR ---
PATIENT PUSHES HER CALL LIGHT AND ASKS TO USE THE BATHROOM. PATIENT AMBULATES WELL, VOIDS 125 ML CLEAR, BRIGHT YELLOW URINE AND AMBULATES BACK TO HER ROOM. PATIENT IS REQUESTING TOAST. TOAST IS GIVEN. PATIENT IS SITTING UP IN BED, EATING AND DRINKING AND TOLERATING THAT WELL.
--- NOTE | 2019-08-28 16:27 | NUR ---
PATIENT PUSHES HER CALL LIGHT AND ASKS FOR THE HOB TO BE LOWERED. THIS IS DONE. PATIENT DENIES ADDITIONAL NEEDS AT THIS TIME.
--- NOTE | 2019-08-28 17:05 | NUR ---
PATIENT WAKES EASILY TO MY VOICE AND REPORTS "I'M NOT READY TO GO HOME YET." PATIENT OPENS HER EYES SLIGHTLY AND QUICKLY FALLS BACK TO SLEEP WHEN UNSTIMULATED.
--- NOTE | 2019-08-28 17:44 | NUR ---
NAZARIO Lzi5: DR HUMPHREY IN TO SPEAK TO PATIENT. DISCHARGE INSTRUCTIONS ARE GIVEN AND PATIENT VERBALIZES UNDERSTANDING. PATIENT IS GETTING DRESSED. PATIENT'S SPOUSE IS CALLED FOR HIM TO COME GET HER. PATIENT TRANSFERS HERSELF TO THE WHEELCHAIR AND THEN TO PERSONAL VEHICLE AND TOLERATES THAT WELL.
--- NOTE | 2019-09-01 15:43 | PATH ---
[facility] [address] [place], [place] [address] Signed SPECIMEN(S): A UTERUS, CERVIX AND TUBES SPECIMEN SOURCE: A. UTERUS, CERVIX AND TUBES CLINICAL HISTORY: Abnormal uterine bleeding, adenomyosis, dysmenorrhea, pelvic and perineal pain. FINAL PATHOLOGIC DIAGNOSIS: Uterus, cervix, and bilateral fallopian tubes, hysterectomy and bilateral salpingectomy: - Cervix: No histopathologic abnormality. - Endometrium: Weakly proliferative endometrium. - Myometrium: No histopathologic abnormality. - Serosa: Focal fibrous adhesions. - Fallopian tubes: No histopathologic abnormality. NAL:cml:C2NR MICROSCOPIC EXAMINATION: Histologic sections of all submitted blocks are examined by light microscopy. These findings, together with the gross examination, support the pathologic diagnosis. GROSS DESCRIPTION: The specimen, labeled "NH," and designated on the requisition "bilateral fallopian tubes, uterus and cervix," is received in formalin and consists of a 72 gram uterus (5.4 x 5.0 x 4.1 cm) attached cervix (2.3 cm in length x 2.8 cm in diameter) with pink-wilkes to hemorrhagic cervical mucosa and slit-shaped os (1.3 cm length x 0.3 cm in width). Also received are two detached fimbriated fallopian tubes that appear grossly unremarkable (5.5 cm in length x 0.5 cm in diameter and 4.9 cm in length x 0.5 cm in diameter). One fallopian tube is inked blue. The serosa is pink-wilkes to slightly hemorrhagic. The specimen is opened to reveal a pink-wilkes to hemorrhagic endocervical canal (2.3 cm in length x 0.6 cm in diameter), and an endometrial cavity (4.1 cm superior inferior, and 2.4 cm cornu to cornu) with a pink-wilkes to hemorrhagic endometrial lining (0.2 cm in thickness). The myometrium is pink-wilkes, trabeculated. There is a pinpoint hemorrhage. Director Medical sections are submitted as follows: PATIENT NAME: HIRO RODRIGUEZ PATHOLOGY DATE OF : 89 REPORT #: [id number] PHYSICIAN: FREDDY DAVISON PCP: DENNYS HUMPHREY DO REPORT IS CONFIDENTIAL AND NOT TO BE RELEASED WITHOUT AUTHORIZATION [facility] [address] [place], [place] [address] Signed Cassette Summary: (A1) Anterior and posterior cervix (A2) Anterior and posterior endomyometrium (A3) Fallopian tubes AC (under the direct supervision of a pathologist) The Gross Description was prepared using a voice recognition system. The report was reviewed for accuracy; however, sound-alike word errors, addition and/or deletions may occur. If there is any question about this report, please contact Client Services. PERFORMING LABORATORY: The technical component was performed by [email or web address], [address] [place] [id number] (Mosaicist: Mary Anne Mims MD; CLIA# [id number]). [facility], [address] [address] (CLIA# [id number]). Diagnostician: Isatu Taylor MD Pathologist Electronically Signed 09/01/2019 Copies: ~ PATIENT NAME: HIRO RODRIGUEZ PATHOLOGY DATE OF : [birth year] REPORT #: [id number] PHYSICIAN: FREDDY PATHOLOGY PCP: DENNYS HUMPHREY DO REPORT IS CONFIDENTIAL AND NOT TO BE RELEASED WITHOUT AUTHORIZATION
--- NOTE | 2019-09-09 10:32 | OR ---
[facility] [address] [place] [facility] [place] [address] Signed DATE OF OPERATION: 08/28/2019 SURGEON: Dennys Voss DO PREOPERATIVE DIAGNOSES: 1. Abnormal uterine bleeding. 2. Adenomyosis. 3. Dysmenorrhea. 4. Chronic pelvic pain. POSTOPERATIVE DIAGNOSES: 1. Abnormal uterine bleeding. 2. Adenomyosis. 3. Dysmenorrhea. 4. Chronic pelvic pain. 5. Scant omental adhesion. PROCEDURES PERFORMED: 1. Total laparoscopic hysterectomy. 2. Bilateral salpingectomy. 3. Cystoscopy. 4. Lysis of adhesions, lasted in 5 minutes. KILN FIRER: Ananda Vega M.D. ANESTHESIA: General. ESTIMATED BLOOD LOSS: 20 mL. SPECIMENS: Uterus, cervix, and bilateral fallopian tubes. The patient reports history of Essure coils that should be included in the specimen, however, were not able to be seen grossly. FINDINGS: Normal external genitalia. Normal right upper quadrant. Scant omental adhesions to the anterior abdominal wall. No evidence of endometriosis. Normal-appearing tubes and Electronically Signed By: DENNYS VOSS DO 09/04/19 0939 PATIENT NAME: HIRO RODRIGUEZ OPERATIVE REPORT DATE OF : [birth year] REPORT #: [id number] PHYSICIAN: DENNYS VOSS DO PCP: DENNYS VOSS DO REPORT IS CONFIDENTIAL AND NOT TO BE RELEASED WITHOUT AUTHORIZATION [facility] [address] [place], [place] [address] Signed ovaries, although the patient reports status post Essure tubal ligation. Normal uterus. On cystoscopy, normal bladder with bilateral ureteral jets. COMPLICATIONS: None. INDICATIONS: Ms. Rodriguez is a pleasant 34-year-old female with history of chronic pelvic pain and dysmenorrhea. She is status post Essure for tubal ligation and reports worsening dysmenorrhea. An ultrasound demonstrated evidence of adenomyosis. Decision was made to proceed with total laparoscopic hysterectomy, bilateral salpingectomy, and cystoscopy. Risks, benefits, and alternatives were discussed in detail with the patient. The patient understands and wished to proceed with the procedure. DESCRIPTION OF PROCEDURE: The patient was taken to the operating room, where a time-out was performed to confirm correct patient and correct procedure. General anesthesia was adequately established. The patient was prepped and draped in the dorsal lithotomy position with her feet in Yellofin stirrups. ICPs were on and running. The patient received Ancef 2 g preoperatively per SCIP protocol and heparin was not indicated based on her Caprini score. Rodriguez catheter was inserted. Weighted speculum was placed in the vagina and the anterior lip of the cervix was grasped with an Allis clamp. The cervix was gently dilated using Hegar dilators and a VCare uterine manipulator was placed without difficulty. The surgeon's gloves were changed. Attention was turned to the base of the umbilicus. The umbilicus was infiltrated with 0.25% Marcaine with epinephrine and a 5 mm stab incision was made using an 11 blade. A 5 mm trocar was placed under direct visualization into the abdomen without complication. Low opening pressures were noted and survey of the abdomen and pelvis was performed. Normal upper quadrants bilaterally and a scant omental adhesion were noted. A 5 mm trocar was placed in left lower quadrant under direct visualization without complication. An 8 mm expanding port was placed in the right lower quadrant under direct visualization without complication. LigaSure device was used to fulgurate and divide the omental adhesion at the anterior abdominal wall. Attention was then turned to the pelvis. Exam of the pelvis was performed, and no evidence of endometriosis was noted. Normal uterus, tubes, and ovaries. The left fallopian tube was grasped at the fimbriated end, elevated and divided from the ovary using the LigaSure device. The remainder of the fallopian tube was divided along the mesosalpinx with careful fulguration with the LigaSure device. The fallopian tube was cut and divided and delivered and sent to pathology for further evaluation. The process was repeated on the right side and the right fallopian tube was sent to Pathology as well. The left uteroovarian ligament was fulgurated and divided with good hemostasis. The round ligament was fulgurated and divided with good hemostasis and the leaves of the Electronically Signed By: DENNYS VOSS DO 09/04/19 0939 PATIENT NAME: HIRO RODRIGUEZ OPERATIVE REPORT DATE OF : [birth year] REPORT #: [id number] PHYSICIAN: DENNYS VOSS DO PCP: DENNYS VOSS DO REPORT IS CONFIDENTIAL AND NOT TO BE RELEASED WITHOUT AUTHORIZATION [address] [address] Signed broad ligament were bluntly dissected. The anterior leaf was dissected down to just above the cuff in the midline, and the bladder was pushed down well below the cervical cup. The posterior leaf of the broad ligament was divided down to the angle of the uterosacral ligament. Dissection was carried across the posterior to the contralateral uterosacral ligament. Uterine vessels were then identified, fulgurated, and divided with excellent hemostasis. The process was repeated on the right side with fulguration and division of the utero-ovarian ligament, round ligament, and division of the leaves of the broad ligament. The anterior leaf was completely divided down to the midline and the remainder of the bladder was pushed well below the vaginal cup. The posterior leaf was divided, and the uterine vessels were identified. They were fulgurated and divided with excellent hemostasis. The Sonicision device was then used to perform a circumferential colpotomy, and the uterus and cervix were delivered through the vagina and sent to pathology. The vagina was stuffed with a wet lap inside of a glove to maintain pneumoperitoneum and attention was turned back to the pelvis. The pelvis was irrigated and found to be hemostatic. The colpotomy was closed using V-Loc suture with an Endostitch device in a running nonlocked stitch with careful attention to incorporate the uterosacral ligaments bilaterally, and the vaginal epithelium with each bite. Excellent cuff closure, hemostasis, and apical support were noted at the end the procedure. The pelvis was again irrigated and found to be hemostatic. Pneumoperitoneum was reduced. Trocars were removed and trocar sites repaired using 4-0 Vicryl in a running subcuticular stitch with excellent hemostasis cosmesis. Attention was turned to cystoscopy. The Rodriguez catheter was removed and a 70-degree cystoscope was placed into the urethral meatus and advanced under direct visualization into the bladder. Normal bladder and bladder dome were observed. Bilateral ureteral jets were observed. The bladder was drained. Rodriguez catheter was reinserted. The patient was taken to PACU in good and stable condition. Sponge, needle, and instrument count was correct x2 at the end of procedure. Dr. Vega was present and participated in all portions of the procedure. DO RIYA Brady/RALPH /[id number] Copies: Electronically Signed By: DENNYS VOSS DO 09/04/19 0939 PATIENT NAME: HIRO RODRIGUEZ OPERATIVE REPORT DATE OF : [birth year] REPORT #: [id number] PHYSICIAN: DENNYS VOSS DO PCP: DENNYS VOSS DO REPORT IS CONFIDENTIAL AND NOT TO BE RELEASED WITHOUT AUTHORIZATION [address] [place], [place] [address] Signed ~ Electronically Signed By: DENNYS VOSS DO 09/04/19 0939 PATIENT NAME: IHRO RODRIGUEZ OPERATIVE REPORT DATE OF : [birth year] REPORT #: [id number] PHYSICIAN: DENNYS VOSS DO PCP: DENNYS VOSS DO REPORT IS CONFIDENTIAL AND NOT TO BE RELEASED WITHOUT AUTHORIZATION
== END 2019-08-28 17:30 | disposition home or self-care (01) ==
LOC: OPS 08:45 → DS 08:45 → OPS 10:45 → DS 10:45 → OPS 17:30
PROVIDERS: Obstetrics & Gynecology
PROC: 0UT94ZZ Resection of Uterus, Percutaneous Endoscopic Approach (ICD-10-PCS; principal; 2019-08-28 10:45)
PROC: 0UT74ZZ Resection of Bilateral Fallopian Tubes, Percutaneous Endoscopic Approach (ICD-10-PCS; 2019-08-28 10:45)
DX: N93.9 Abnormal uterine and vaginal bleeding, unspecified (principal); N80.0 Endometriosis of uterus; N94.6 Dysmenorrhea, unspecified; R10.2 Pelvic and perineal pain; D64.9 Anemia, unspecified; Z79.899 Other long term (current) drug therapy; Z88.6 Allergy status to analgesic agent; Z88.8 Allergy status to other drugs, medicaments and biological substances; Z91.030 Bee allergy status
CPT/HCPCS: 00840; J0690; J1100; J1885; J2270; J2405; J2550; J2704; J3010; J3475; J7121

== ENCOUNTER 2020-01-16 00:05 | Emergency (ER) | payer BC ==
[~2020-01-16] VITALS: Ht 154.9 cm; Wt 70.3 kg
[~2020-01-16 00:05] MED LIST changes: +ADVIL LIQUI-GE200 MG PO; +IRON18 MG PO; +MOTRIN IB200 MG PO; +TYLENOL325 MG PO
--- OUTSIDE RECORDS SUMMARY | 2020-01-16 00:08 | XMS ---
PreManage Notification: HIRO RODRIGUEZ Security Medical Care Manager Events No recent Security Events currently on file CRITERIA MET - [facility] Guidelines CARE PROVIDERS DENNYS HUMPHREYpractor 07/22/2019-Current PHONE: [phone] DENNYS HUMPHREY Obstetrics \T\ Gynecology Current PHONE: Unknown Guidelines [facility] Date: 03/07/2019 Care Coordination: Receiving mental health services with [facility].\T\nbsp; Please contact [facility] for mental health concerns.\T\nbsp; Tristin/Santi Serrano: [phone]\T\ nbsp; Bi: [phone].\T\nbsp; E.D. VISIT COUNT (12 MO.) [address] [facility] TOTAL 3 NOTE: Visits indicate total known visits. ED/UCC VISIT TRACKING (12 MO.) 01/16/2020 00:05 [facility] TYPE: Emergency COMPLAINT: - ABD PAIN 07/21/2019 11:27 [facility] TYPE: Emergency COMPLAINT: - ABDOMINAL PAIN DIAGNOSES: - Allergy to eggs - Personal history of nicotine dependence - Other termite control technician (current) drug therapy - Noninfective gastroenteritis and colitis, unspecified - Unspecified abdominal pain - Allergy to other foods 03/04/2019 09:24 [facility] TYPE: Emergency COMPLAINT: - URINE PROBLEM, VOMITING INPATIENT VISIT TRACKING (12 MO.) 03/04/2019 15:40 [facility] TYPE: Medical Surgical COMPLAINT: - PYELONEPHRITIS DIAGNOSES: - Allergy status to other drugs, medicaments and biological substances - Endometriosis, unspecified - Other termite control technician (current) drug therapy - Allergy status to other drugs, medicaments and biological substances - Endometriosis, unspecified - Acute pyelonephritis - custodial (current) use of hormonal contraceptives - Other termite control technician (current) drug therapy - Hypokalemia - Hypokalemia - intermodal customer service (current) use of hormonal contraceptives [email or web address]
[2020-01-16] MEDS ORDERED: MULTIVITAMIN1 EACH PO (00:34)
[2020-01-16] MEDS ORDERED: ZOFRAN4 MG PO (02:44)
== END 2020-01-16 03:14 | disposition home or self-care (01) ==
LOC: ED 00:05
DX: K52.9 Noninfective gastroenteritis and colitis, unspecified (principal); Z88.8 Allergy status to other drugs, medicaments and biological substances; Z91.030 Bee allergy status; Z88.5 Allergy status to narcotic agent; Z91.013 Allergy to seafood
CPT/HCPCS: 74177; 80053; 81001; 83690; 85025; 87088; 87491; 87591; 99284-25; J1885; J2405; J7030; Q9967